=== PATIENT | female | born 2000 | race Caucasian/White ===

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

== ENCOUNTER → 2020-01-13 14:55 | Outpatient (CLI) | payer OTHER, SELFPAY | PROVIDERS: Visit Provider Physician Assistant | DX: N76.0 Acute vaginitis (principal) | CPT/HCPCS: 87210 ==

== ENCOUNTER 2020-06-16 13:32 | Emergency (ER) | payer OTHER, SELFPAY ==
[2020-06-16 14:05] VITALS: BP 85/68; PULSE 62; RESP 16; O2SAT 98; BMI 29.0
[2020-06-16 14:06] VITALS: BP 103/70; BP 123/69; PULSE 65; RESP 17; TEMP 36.7; O2SAT 97; BMI 29.0
--- NOTE | 2020-06-16 14:07 | ECG_ITS ---
APPROVED REPORT Exam: Resting ECG HR:60 bpm ECG Measurements Heart Rate 60 AXES MT 150 P 36 QRSd 80 QRS 71 QT 426 T 19 QTc 426 <Conclusion> Normal sinus rhythm Normal ECG Electronically signed by : Juan Capps, 06/16/2020 20:16:22
--- NOTE | 2020-06-16 14:07 | XR_ITS ---
PROCEDURE: XR CHEST 2V CLINICAL HISTORY: syncope COMPARISON: CXR CHEST(2 VIEWS-NOT PORTABLE) from 07/28/2015 FINDINGS: The cardiomediastinal silhouette and pulmonary vascularity are within normal limits. The lungs are clear without infiltrates, suspicious nodules, or pleural effusions. No acute bony abnormalities. IMPRESSION: No acute findings. Dictated by: Noel Arteaga MD 06/16/2020 16:12 Electronically signed by Noel Arteaga MD in [facility] 06/16/2020 16:12
--- NOTE | 2020-06-16 14:08 | CT_ITS ---
PROCEDURE: CT HEAD/BRAIN WO CON CLINICAL INDICATION: syncope COMPARISON: No exams were available for comparison TECHNIQUE: Axial images obtained. All CT scans at the facility use one or more dose reduction, viz: automated exposure control, ma/kV adjustment per patient size (including targeted exams where dose is matched to indication, i.e. head), or iterative reconstruction technique. FINDINGS: No midline shift, mass effect, intracranial hemorrhage, hydrocephalus, or extra-axial fluid collection is evident. There is some asymmetry in the anterior horns of the lateral ventricles the right being smaller than the left both being somewhat small/slit like. The calvarium has an unremarkable appearance. No mastoid effusion. No sinus air-fluid level. IMPRESSION: 1. No acute intracranial finding. 2. Slit-like anterior horn of the lateral ventricles right-sided smaller than left. This is nonspecific but could be seen with pseudotumor cerebri. Clinical correlation required. Nonemergent MRI may provide further evaluation Dictated by: Noel Arteaga MD 06/16/2020 14:57 Electronically signed by Noel Arteaga MD in [facility] 06/16/2020 14:57
[2020-06-16 14:17] LABS: Microscopic, Urine URINE MICROSCOPIC (MICROSCOPIC)
[2020-06-16 14:21] LABS: Appearance,Urine CLEAR (Clear); Bilirubin,Urine Negative (Negative); Blood, Urine 3+ (Negative); Color,Urine YELLOW (Yellow); Glucose,Urine (UA) Negative (Negative); Ketones,Urine Negative (Negative); Leukocyte Esterase,Urine Negative (Negative); Nitrate,Urine Negative (Negative); Protein,Urine TRACE (Negative); Urobilinogen,Urine 0.2 EU/dl (0.2)
[2020-06-16 14:24] LABS: Urine Pregnancy, HCG Qual. Negative (Negative)
[2020-06-16 14:31] LABS: Bacteria,Urine 1+ /lpf; Mucus,Urine 2+ /lpf; RBC,Urine 20-50 #/hpf (0-3)
[2020-06-16 14:34] LABS: Amphetamine/Metha Screen,Urine Negative ng/ml (<1000)
[2020-06-16 14:35] LABS: Barbiturates Screen,Urine Negative ng/ml (<200); Benzodiazepines Screen,Urine Negative ng/ml (<200)
[2020-06-16 14:36] LABS: Cannabinoid Screen,Urine Negative ng/ml (<50); Cocaine Screen,Urine Negative ng/ml (<300)
[2020-06-16 14:37] LABS: Methadone Screen,Urine Negative ng/ml (<300)
[2020-06-16 14:38] LABS: Opiate Screen,Urine Negative ng/ml (<300); Phencyclidine Screen,Urine Negative ng/ml (<25)
[2020-06-16 14:45] LABS: Basophils # 0.1 K/mm3 (0-0.2); Basophils % 0.7 % (0.1-2.0); Eosinophils # 0.4 K/mm3 (0.0-0.4); Eosinophils % 4.2 % (0.1-12.0); Hemoglobin 13.8 g/dL (12.2-16.2); Lymphocytes # 2.3 K/mm3 (0.7-4.5); Lymphocytes % 24.8 % (10-50); Mean Corpuscular HGB Conc 34.6 g/dL (31.8-35.4); Mean Corpuscular Hemoglobin 29.4 pg (27.0-31.2); Mean Platelet Volume 7.1 fl (7.4-10.4); Monocytes # 0.5 K/mm3 (0.1-1.0); Monocytes % 5.2 % (1.7-9.3); Neutrophils # 5.9 K/mm3 (1.8-7.8); Neutrophils % 65.1 % (37.0-80.0); Platelet Count 334 K/mm3 (142-424); Red Cell Distribution Width 13.7 % (11.5-17.5)
[2020-06-16 14:51] LABS: Alanine Aminotransferase 26 U/L (12-78); Albumin Level 4.7 g/dl (3.5-5.0); Albumin/Globulin Ratio 1.3 (1.1-1.8); Alkaline Phosphatase 111 U/L (38-126); Anion Gap 12.1 mEq/L (5-15); Aspartate Amino Transferase 39 U/L (14-36); Bilirubin,Total 0.7 mg/dl (0.2-1.3); Blood Urea Nitrogen 13 mg/dl (7-17); Calcium 9.5 mg/dl (8.4-10.2); Carbon Dioxide 28 mmol/L (22.0-30.0); Chloride 106 mmol/L (98-107); Creatinine Clearance Estimated 220 mL/min (50-200); Estimated Glomerular Filt Rate 126 ml/min (>60); GFR (African American) 153 ML/MIN (>60); Globulin 3.5 g/dL (1.3-3.2); Glucose 95 mg/dl (74-100); Potassium 4.1 mmoL/L (3.5-5.1); Sodium 142 mmol/L (136-145); Total Protein,Serum 8.2 g/dl (6.3-8.2)
[2020-06-16 15:02] LABS: Troponin I < 0.01 ng/ml (0.00-0.034)
[2020-06-16 15:03] VITALS: BP 118/60; BP 118/61; BP 123/69; PULSE 60; PULSE 65; PULSE 92
[2020-06-16 16:10] VITALS: BP 116/72; PULSE 94; RESP 20; O2SAT 100
--- NOTE | 2020-06-16 16:41 | HMH.EDSYNC ---
ED Disposition Clinical Impression: Vasovagal syncope Disposition: Home, Self-Care Condition on Discharge: Good Instructions: DI for Syncope in Adults (Fainting) Referrals: Gabby Olivas PA [Primary Care Provider] - - Critical Care Critical Care Time: No Attestation: On 06/16/20, the high probability of a clinically significant, sudden or life threatening deterioration of the following system(s) required my full and direct attention, intervention and personal management. The time I documented below is in addition to time spent performing reported procedures but includes the following listed in this critical care notation. Medical Decision Making - Medical Records Medical records reviewed: Yes: I reviewed the patient's medical records. - Almas Inquiry Pt receiving controlled substance: No Vital Signs: 06/16/20 14:05 06/16/20 14:06 06/16/20 15:03 Temperature 98.1 F Temperature Source Oral Pulse Rate [Left Brachial] 62 Pulse Rate [Orthostatic Lying] 65 Pulse Rate [Orthostatic Sitting] 92 H Pulse Rate [Orthostatic Standing] 60 Pulse Rate [Right] 65 Respiratory Rate 16 17 Blood Pressure [Left Arm] 85/68 L Blood Pressure [Orthostatic Lying Right Arm] 123/69 Blood Pressure [Orthostatic Sitting Right Arm] 118/60 Blood Pressure [Orthostatic Standing] 118/61 Blood Pressure [Right Arm] 103/70 L Blood Pressure Mean [Left Arm] 73 Blood Pressure Mean [Right Arm] 81 Blood Pressure Source [Left Arm] Automatic Cuff Blood Pressure Source [Right Arm] Automatic Cuff Blood Pressure Position [Left Arm] Sitting Blood Pressure Position [Right Arm] Sitting 02 Sat by Pulse Oximetry 98 97 Oxygen Delivery Method Room Air 06/16/20 16:10 Temperature Temperature Source Pulse Rate [Left Brachial] 94 H Pulse Rate [Orthostatic Lying] Pulse Rate [Orthostatic Sitting] Pulse Rate [Orthostatic Standing] Pulse Rate [Right] Respiratory Rate 20 Blood Pressure [Left Arm] 116/72 Blood Pressure [Orthostatic Lying Right Arm] Blood Pressure [Orthostatic Sitting Right Arm] Blood Pressure [Orthostatic Standing] Blood Pressure [Right Arm] Blood Pressure Mean [Left Arm] 86 Blood Pressure Mean [Right Arm] Blood Pressure Source [Left Arm] Automatic Cuff Blood Pressure Source [Right Arm] Blood Pressure Position [Left Arm] Sitting Blood Pressure Position [Right Arm] 02 Sat by Pulse Oximetry 100 Oxygen Delivery Method Room Air - Lab Data Lab results reviewed: Yes: I reviewed the patient's lab results. Lab Results 06/16/20 12:10: Urine Color Yellow, Urine Appearance Clear, Urine pH 7.0, Ur Specific [place] 1.020, Urine Protein Trace, Urine Glucose (UA) Negative, Urine Ketones Negative, Urine Blood 3+, Urine Nitrate Negative, Urine Bilirubin Negative, Urine Urobilinogen 0.2, Ur Leukocyte Esterase Negative, Urine RBC 20-50, Urine WBC 3-5, Ur Squamous Epith Cells 3-5, Urine Bacteria 1+, Urine Mucus 2+ 06/16/20 12:10: Urine HCG, Qual Negative 06/16/20 12:10: Urine Opiates Screen Negative, Urine Methadone Screen Negative, Ur Barbituates Screen Negative, Ur Phencyclidine Scrn Negative, Ur Amphetamines Screen Negative, U Benzodiazepines Scrn Negative, Urine Cocaine Screen Negative, U Marijuana (THC) Screen Negative 06/16/20 14:35: WBC 9.0, RBC 4.70, Hgb 13.8, Hct 40.0, MCV 85.0, MCH 29.4, MCHC 34.6, RDW 13.7, Plt Count 334, MPV 7.1 L, Neut % (Auto) 65.1, Lymph % (Auto) 24.8, [place] % (Auto) 5.2, Eos % (Auto) 4.2, Baso % (Auto) 0.7, Neut # (Auto) 5.9, Lymph # (Auto) 2.3, [place] # (Auto) 0.5, Eos # (Auto) 0.4, Baso # (Auto) 0.1 06/16/20 14:35: Sodium 142, Potassium 4.1, Chloride 106, Carbon Dioxide 28, Anion Gap 12.1, BUN 13, Creatinine 0.60, Estimated Creat Clear 220, Estimated GFR 126, Est GFR ( Amer) 153, Glucose 95, Calcium 9.5, Total Bilirubin 0.7, AST 39 H, ALT 26, Alkaline Phosphatase 111, Troponin I < 0.01, Total Protein 8.2, Albumin 4.7, Globulin 3.5 H, Albumin/Globulin Ratio 1.3 Resu
[2020-06-16 16:49] VITALS: BP 108/87; PULSE 87; RESP 17; TEMP 36.6; O2SAT 100
== END 2020-06-16 16:50 | disposition home or self-care (01) ==
LOC: UTC 14:05 → ER 14:06
PROVIDERS: Emergency Provider Family Medicine; PCP Physician Assistant
DX: R55 Syncope and collapse (principal)
CPT/HCPCS: 70450; 71046; 80053; 80305; 81001; 81025; 84484; 85025; 93005; 96365; 99284

== ENCOUNTER → 2021-09-24 11:38 | Outpatient (CLI) | payer OTHER, SELFPAY ==
[2021-09-24 13:24] LABS: HCG,Quantitative 74 mIU/ml (0-5.42)
== END ==
PROVIDERS: Visit Provider Obstetrics & Gynecology
DX: Z32.01 Encounter for pregnancy test, result positive (principal)
CPT/HCPCS: 36415; 84702

== ENCOUNTER → 2021-09-26 11:54 | Outpatient (CLI) | payer OTHER, SELFPAY ==
[2021-09-26 13:06] LABS: HCG,Quantitative 216 mIU/ml (0-5.42)
== END ==
PROVIDERS: Visit Provider Obstetrics & Gynecology
DX: Z32.00 Encounter for pregnancy test, result unknown (principal)
CPT/HCPCS: 36415; 84702

== ENCOUNTER → 2021-10-03 17:15 | Outpatient (CLI) | payer OTHER, SELFPAY ==
[2021-10-03 22:02] LABS: HCG,Quantitative 7987 mIU/ml (0-5.42)
== END ==
PROVIDERS: Visit Provider Obstetrics & Gynecology
DX: Z34.90 Encounter for supervision of normal pregnancy, unspecified, unspecified trimester (principal)
CPT/HCPCS: 36415; 84702

== ENCOUNTER → 2021-10-17 09:27 | Outpatient (CLI) | payer OTHER, SELFPAY ==
[2021-10-17 11:07] LABS: Coronavirus 19, PCR Not Detected (NotDetected); Influenza A, PCR Not Detected (NotDetected); Influenza B, PCR Not Detected (NotDetected)
== END ==
PROVIDERS: PCP Physician Assistant; Visit Provider Nurse Practitioner
DX: Z20.822 Contact with and (suspected) exposure to COVID-19 (principal)
CPT/HCPCS: C9803; U0003; U0005

== ENCOUNTER → 2021-10-17 14:09 | Outpatient (CLI) | payer OTHER, SELFPAY ==
--- NOTE | 2021-10-17 14:09 | US_ITS ---
PROCEDURE: US OB <= 14 WEEKS FETUS CLINICAL INDICATION: Dates COMPARISON: No exams were available for comparison FINDINGS: An intrauterine gestational sac is present with a pole with a crown-rump length of 0.9cm correlating to gestational age of 7weeks. heart tones are present with an FHR of 139bpm. Yolk sac is noted. 15 mm left ovarian cyst. No cul-de-sac fluid IMPRESSION: Live IUP at 7 weeks 0 days Estimated due date by Ultrasound is 06/05/2022 Dictated by: Noel Arteaga MD 10/18/2021 08:19 Noel Arteaga MD in [facility] 10/18/2021 08:19
== END ==
PROVIDERS: PCP Physician Assistant; Visit Provider Obstetrics & Gynecology
DX: Z34.90 Encounter for supervision of normal pregnancy, unspecified, unspecified trimester (principal)
CPT/HCPCS: 76801

== ENCOUNTER → 2021-10-19 11:04 | Outpatient (CLI) | payer OTHER, SELFPAY ==
[2021-10-19 11:47] LABS: Basophils # 0.1 K/mm3 (0-0.2); Basophils % 0.8 % (0.1-2.0); Eosinophils # 0.3 K/mm3 (0.0-0.4); Eosinophils % 2.3 % (0.1-12.0); Hematocrit 40.5 % (37.0-47.0); Lymphocytes # 2.1 K/mm3 (0.7-4.5); Lymphocytes % 17.5 % (10-50); Mean Corpuscular HGB Conc 34.5 g/dL (31.8-35.4); Mean Corpuscular Hemoglobin 30.3 pg (27.0-31.2); Mean Corpuscular Volume 87.8 fl (81-99); Mean Platelet Volume 7.7 fl (7.4-10.4); Monocytes # 0.5 K/mm3 (0.1-1.0); Monocytes % 4.4 % (1.7-9.3); Platelet Count 424 K/mm3 (142-424); Red Blood Count 4.61 M/mm3 (4.20-5.40); Red Cell Distribution Width 13.7 % (11.5-17.5)
[2021-10-20 10:27] LABS: Rubella Antibodies, IgG 2.27 index (Immune >0.99)
[2021-10-20 11:30] LABS: HIV Screen 4th Generation wRfx Non Reactive (Non Reactive); Hepatitis B Surface Antigen Negative (Negative); Hepatitis C Antibody <0.1 s/co ratio (0.0-0.9); Rapid Plasma Reagin Ab Titer Non Reactive (NonRea<1:1)
== END ==
PROVIDERS: Visit Provider Obstetrics & Gynecology
DX: Z34.90 Encounter for supervision of normal pregnancy, unspecified, unspecified trimester (principal)
CPT/HCPCS: 36415; 85025; 86592; 86703; 86762; 86850; 87340; 87380; G0432

== ENCOUNTER 2021-12-03 14:58 | Outpatient (CLI) | payer OTHER, SELFPAY ==
[2021-12-03 15:15] VITALS: BP 110/58; PULSE 98; RESP 18; O2SAT 97
[2021-12-03 16:20] VITALS: BP 121/71; PULSE 70; RESP 18
== END 2021-12-03 16:20 | disposition home or self-care (01) ==
LOC: INF 14:59
PROVIDERS: PCP Physician Assistant; Visit Provider Obstetrics & Gynecology
DX: O21.0 Mild hyperemesis gravidarum (principal)
CPT/HCPCS: 96360; 96375; J2405

== ENCOUNTER → 2022-01-11 13:27 | Outpatient (CLI) | payer OTHER, SELFPAY ==
--- NOTE | 2022-01-11 13:30 | US_ITS ---
FINAL REPORT CLINICAL HISTORY: anatomy scan, OB complete FINDINGS: There is a single live intrauterine gestation. Presentation is cephalic. Placenta is posterior and fundal. movement is noted. Cardiac activity is confirmed at 146 beats per minute. Three-vessel cord with satisfactory umbilical cord insertion. Four-chamber heart is noted. brain and ventricles are unremarkable. Chest and diaphragm are unremarkable. ABDOMEN: Both kidneys are unremarkable. Stomach is unremarkable. SPINE: No anomalies identified. Both arms and legs noted. AMNIOTIC FLUID: Appropriate amount. MEASUREMENTS: ULTRASOUND AGE: 20 weeks 0 days. GESTATION AGE: 19 weeks 2 days. ESTIMATED WEIGHT: 317 g GROWTH PERCENTILE: 79% BPD: 4.7 cm consistent with 20 weeks 2 days. OFD: 5.9 cm consistent with 20 weeks 2 days. HC: 16.8 cm consistent with 19 weeks 3 days. AC: 14.6 cm consistent with 20 weeks 0 days. FL: 3.2 cm consistent with 20 weeks 0 days. CEREBELLUM: 2.0 cm consistent with 20 weeks 0 days. HUMERUS: 3.0 cm consistent with 20 weeks 0 Nuchal fold: 2.2 mm days. HC/AC: 1.15 CI: 79% FL/BPD: 68% FL/AC: 22% IMPRESSION: Single living IUP with an ultrasound age of 22 weeks 0 days. Reviewed, Interpreted and Dictated by Vitaliy Orona III, MD Transcribed by Tai Cerda Authenticated by Vitaliy Orona III, MD on 01/11/2022 02:57:16 PM [facility]
== END ==
PROVIDERS: PCP Physician Assistant; Visit Provider Obstetrics & Gynecology
DX: Z34.90 Encounter for supervision of normal pregnancy, unspecified, unspecified trimester (principal)
CPT/HCPCS: 76805

== ENCOUNTER 2022-02-04 16:10 | Emergency (ER) | payer OTHER, SELFPAY ==
--- NOTE | 2022-02-04 16:05 | ECG_ITS ---
APPROVED REPORT Exam: Resting ECG HR:85 bpm ECG Measurements Heart Rate 85 AXES NH 137 P 59 QRSd 82 QRS 57 QT 376 T 38 QTc 418 Conclusion SINUS RHYTHM NORMAL ECG UNCONFIRMED REPORT Electronically signed by : Juan Capps MD 02/04/2022 19:45:22
[2022-02-04 16:11] VITALS: BP 124/69; PULSE 89; RESP 16; TEMP 36.9; O2SAT 100; BMI 37.3
--- NOTE | 2022-02-04 16:17 | XR_ITS ---
PROCEDURE INFORMATION: Exam: XR Chest Exam date and time: 02/04/2022 4:17 PM Age: 22 years old Clinical indication: Pain; Chest pressure; Additional info: Chest pain TECHNIQUE: Imaging protocol: XR of the chest. Views: 2 views. COMPARISON: CR XR CHEST 2V 06/16/2020 2:39 PM FINDINGS: Lungs: Unremarkable. No consolidation. Pleural spaces: Unremarkable. No pleural effusion. No pneumothorax. Heart/Mediastinum: Unremarkable. No cardiomegaly. Bones/joints: Unremarkable. IMPRESSION: No acute findings.
[2022-02-04 16:53] VITALS: BP 117/63; PULSE 84; PULSE 86; RESP 16; RESP 18; O2SAT 99
[2022-02-04 17:01] VITALS: BP 120/61; PULSE 80; RESP 18; O2SAT 96
[2022-02-04 17:06] LABS: Basophils # 0.1 K/mm3 (0-0.2); Basophils % 0.7 % (0.1-2.0); Eosinophils # 0.2 K/mm3 (0.0-0.4); Eosinophils % 1.6 % (0.1-12.0); Hematocrit 40.1 % (37.0-47.0); Lymphocytes # 2.2 K/mm3 (0.7-4.5); Mean Corpuscular HGB Conc 32.4 g/dL (31.8-35.4); Mean Corpuscular Hemoglobin 29.8 pg (27.0-31.2); Mean Corpuscular Volume 92.1 fl (81-99); Mean Platelet Volume 7.4 fl (7.4-10.4); Monocytes # 0.5 K/mm3 (0.1-1.0); Monocytes % 3.7 % (1.7-9.3); Neutrophils # 11.5 K/mm3 (1.8-7.8); Neutrophils % 79.1 % (37.0-80.0); Platelet Count 419 K/mm3 (142-424); Red Blood Count 4.36 M/mm3 (4.20-5.40); Red Cell Distribution Width 14.6 % (11.5-17.5); White Blood Count 14.5 K/mm3 (4.8-10.8)
[2022-02-04 17:07] LABS: Chloride 105 mmol/L (98-107)
[2022-02-04 17:08] LABS: Potassium 3.9 mmoL/L (3.5-5.1); Sodium 132 mmol/L (136-145)
[2022-02-04 17:10] LABS: Blood Urea Nitrogen 12 mg/dl (7-17); Creatinine Clearance Estimated 317 mL/min (50-200); Estimated Glomerular Filt Rate 153 ml/min (>60); GFR (African American) 185 ML/MIN (>60)
[2022-02-04 17:11] LABS: Anion Gap 10.9 mEq/L (5-15); Calcium 8.7 mg/dl (8.4-10.2); Carbon Dioxide 20 mmol/L (22.0-30.0); Glucose 81 mg/dl (74-100)
[2022-02-04 17:30] VITALS: BP 102/68; PULSE 82; RESP 16; O2SAT 100
[2022-02-04 17:36] LABS: Troponin I < 0.01 ng/ml (0.00-0.034)
--- NOTE | 2022-02-04 17:52 | HMH.EDCP ---
ED Disposition Clinical Impression: Chest pain Disposition: Home, Self-Care Condition on Discharge: Good Instructions: DI for Atypical Chest Pain Additional Instructions: Please follow up with your primary care physician in 2-3 days for further management. Please discuss with your primary care team regarding potentially starting a PPI for your acid reflux. Please avoid eating large meals before bedtime. Please avoid spicy and fatty foods or anything else that may cause irritation. Please return if your symptoms were to occur. Referrals: Gabby Olivas PA [Primary Care Provider] - - Critical Care Critical Care Time: No Attestation: On 02/04/22, the high probability of a clinically significant, sudden or life threatening deterioration of the following system(s) required my full and direct attention, intervention and personal management. The time I documented below is in addition to time spent performing reported procedures but includes the following listed in this critical care notation. Medical Decision Making - Medical Records Medical records reviewed: Yes: I reviewed the patient's medical records. - Almas Inquiry Pt receiving controlled substance: No Vital Signs: 02/04/22 16:11 02/04/22 16:53 02/04/22 17:01 Temperature 98.4 F Temperature Source Oral Pulse Rate 84 80 Pulse Rate [Left Radial] 89 Respiratory Rate 16 18 18 Blood Pressure 117/63 120/61 Blood Pressure [Right Arm] 124/69 Blood Pressure Mean 78 74 Blood Pressure Mean [Right Arm] 87 Blood Pressure Source Automatic Cuff Blood Pressure Source [Right Arm] Automatic Cuff Blood Pressure Position Sitting Blood Pressure Position [Right Arm] Sitting 02 Sat by Pulse Oximetry 100 99 96 Oxygen Delivery Method Room Air Room Air 02/04/22 17:30 02/04/22 18:01 02/04/22 18:46 Temperature 98 F Temperature Source Oral Pulse Rate 82 81 71 Pulse Rate [Left Radial] Respiratory Rate 16 20 18 Blood Pressure 102/68 L 122/53 L 123/74 Blood Pressure [Right Arm] Blood Pressure Mean 79 80 Blood Pressure Mean [Right Arm] Blood Pressure Source Blood Pressure Source [Right Arm] Blood Pressure Position Sitting Blood Pressure Position [Right Arm] 02 Sat by Pulse Oximetry 100 96 Oxygen Delivery Method Room Air - Lab Data Lab results reviewed: Yes: I reviewed the patient's lab results. Lab Results 02/04/22 16:55: WBC 14.5 H, RBC 4.36, Hgb 13.0, Hct 40.1, MCV 92.1, MCH 29.8, MCHC 32.4, RDW 14.6, Plt Count 419, MPV 7.4, Neut % (Auto) 79.1, Lymph % (Auto) 15.0, [place] % (Auto) 3.7, Eos % (Auto) 1.6, Baso % (Auto) 0.7, Neut # (Auto) 11.5 H, Lymph # (Auto) 2.2, [place] # (Auto) 0.5, Eos # (Auto) 0.2, Baso # (Auto) 0.1 02/04/22 16:55: Sodium 132 L, Potassium 3.9, Chloride 105, Carbon Dioxide 20 L, Anion Gap 10.9, BUN 12, Creatinine 0.50 L, Estimated Creat Clear 317 H, Estimated GFR 153, Est GFR ( Amer) 185, Glucose 81, Calcium 8.7, Troponin I < 0.01 02/04/22 16:55: D-Dimer 1.00 H Result diagrams: 02/04/22 16:55 02/04/22 16:55 Medical Decision Narrative: Miss Ron is a 22 yo female currently w/ no significant PMH who presents to the ED for chest pain. Patient is afebrile and hemodynamically stable on arrival. Physical exam benign. Lungs sounds clear bilaterally. cardiac assessment no murmurs rubs or gallops. Patient is well appearing. Differentials to consider but not limited to include: arrythmia, cardiac mediated, pneumonia low suspicion given no infectious symptoms, MSK. Bedside ECG shows no acute signs of ischemia. Bedside CXR shows normal cardiopulmonary silhoutee. Basic labs, Trop, Dimer are non actionable. Dimer per years criteria no further investigation. Christy is observed in the ED and is currently asymptomatic. Patient is instructed to fu w/ her PCP in 2-3 days and to return if symptoms were to reoccur. Chest Pain HPI - General Chief Complaint: Chest Pain Stated Complaint: chest pain Ti
[2022-02-04 18:01] VITALS: BP 122/53; PULSE 81; RESP 20; O2SAT 96
[2022-02-04 18:46] VITALS: BP 123/74; PULSE 71; RESP 18; TEMP 36.6; O2SAT 98
== END 2022-02-04 18:47 | disposition home or self-care (01) ==
PROVIDERS: Emergency Provider Student in an Organized Health Care Education/Training Program; PCP Physician Assistant
DX: R07.89 Other chest pain (principal); E55.9 Vitamin D deficiency, unspecified; F32.A Depression, unspecified; F41.9 Anxiety disorder, unspecified; Z34.90 Encounter for supervision of normal pregnancy, unspecified, unspecified trimester; Z79.899 Other long term (current) drug therapy; Z88.6 Allergy status to analgesic agent
CPT/HCPCS: 71046; 80048; 84484; 85025; 85378; 93005; 96374; 99283

== ENCOUNTER → 2022-03-12 09:38 | Outpatient (CLI) | payer OTHER, SELFPAY ==
[2022-03-12 10:23] LABS: Basophils # 0.2 K/mm3 (0-0.2); Basophils % 1.8 % (0.1-2.0); Eosinophils # 0.3 K/mm3 (0.0-0.4); Eosinophils % 2.2 % (0.1-12.0); Hematocrit 36.6 % (37.0-47.0); Hemoglobin 12.5 g/dL (12.2-16.2); Lymphocytes % 17.7 % (10-50); Mean Corpuscular HGB Conc 34.1 g/dL (31.8-35.4); Mean Corpuscular Hemoglobin 30.2 pg (27.0-31.2); Mean Corpuscular Volume 88.6 fl (81-99); Mean Platelet Volume 7.2 fl (7.4-10.4); Monocytes # 0.6 K/mm3 (0.1-1.0); Monocytes % 5.1 % (1.7-9.3); Neutrophils # 8.4 K/mm3 (1.8-7.8); Neutrophils % 73.3 % (37.0-80.0); Platelet Count 404 K/mm3 (142-424); Red Blood Count 4.13 M/mm3 (4.20-5.40); Red Cell Distribution Width 13.9 % (11.5-17.5); White Blood Count 11.4 K/mm3 (4.8-10.8)
[2022-03-12 10:34] LABS: Glucose,Fasting 87 mg/dl (74-100)
[2022-03-12 16:12] LABS: Glucose 1 Hour 99 mg/dL (74-100)
== END ==
LOC: RAD 09:39 → LAB 09:39
PROVIDERS: PCP Physician Assistant; Visit Provider Obstetrics & Gynecology
DX: Z34.90 Encounter for supervision of normal pregnancy, unspecified, unspecified trimester (principal)
CPT/HCPCS: 36415; 82951; 85025

== ENCOUNTER 2022-03-17 00:13 | Outpatient (CLI) | payer OTHER, SELFPAY ==
[2022-03-17 00:23] VITALS: BP 114/73; PULSE 95; RESP 18; TEMP 36.7; O2SAT 95; BMI 38.7; BMI 39.7
[2022-03-17 00:38] LABS: Microscopic, Urine URINE MICROSCOPIC (MICROSCOPIC)
[2022-03-17 00:47] LABS: Appearance,Urine SL CLOUDY (Clear); Bilirubin,Urine Negative (Negative); Blood, Urine Negative (Negative); Color,Urine YELLOW (Yellow); Glucose,Urine (UA) Negative (Negative); Ketones,Urine Negative (Negative); Leukocyte Esterase,Urine Negative (Negative); Nitrate,Urine Negative (Negative); Protein,Urine Negative (Negative); Specific Gravity, Urine >= 1.030 (1.005-1.030); Urobilinogen,Urine 0.2 EU/dl (0.2)
[2022-03-17 00:51] LABS: Mucus,Urine Trace /lpf; Squamous Epithelial Cell,Urine 20-50 #/hpf (0-5)
[2022-03-17 01:02] LABS: Amphetamine/Metha Screen,Urine Negative ng/ml (<1000)
[2022-03-17 01:03] LABS: Barbiturates Screen,Urine Negative ng/ml (<200); Benzodiazepines Screen,Urine Negative ng/ml (<200)
[2022-03-17 01:04] LABS: Cannabinoid Screen,Urine Negative ng/ml (<50)
[2022-03-17 01:05] LABS: Cocaine Screen,Urine Negative ng/ml (<300); Methadone Screen,Urine Negative ng/ml (<300)
[2022-03-17 01:06] LABS: Opiate Screen,Urine Negative ng/ml (<300); Phencyclidine Screen,Urine Negative ng/ml (<25)
== END 2022-03-17 01:55 | disposition home or self-care (01) ==
LOC: OBOUT 00:14 → OB 00:15
PROVIDERS: PCP Physician Assistant; Visit Provider Nurse Practitioner Obstetrics & Gynecology
DX: Z34.90 Encounter for supervision of normal pregnancy, unspecified, unspecified trimester (principal)
CPT/HCPCS: 59025; 80305; 81001; 87086; 96360

== ENCOUNTER → 2022-04-22 14:03 | Outpatient (CLI) | payer OTHER, SELFPAY ==
--- NOTE | 2022-04-22 14:06 | US_ITS ---
FINAL REPORT CLINICAL HISTORY: LGA FINDINGS: There is a single live intrauterine gestation. Presentation is vertex. Placenta is posterior and fundal. movement is noted. heart rate is 153 beats per minute AMNIOTIC FLUID: 12.3 cm which is within normal limits. MEASUREMENTS: ULTRASOUND AGE: 35 weeks 3 days. GESTATION AGE: 35 weeks 5 days. ESTIMATED WEIGHT: 2583 g GROWTH PERCENTILE: 82% BPD: 8.89 cm consistent with 36 weeks 0 days. HC: 31.59 cm consistent with 35 weeks 4 days. AC: 31.05 cm consistent with 35 weeks 0 days. FL: 6.75 cm consistent with 34 weeks 5 days. HC/AC: 1.02 CI: 80% FL/BPD: 76% FL/AC: 22% IMPRESSION: Single living IUP with an ultrasound age of 35 weeks 3 days. Normal NATHANAEL. Posterior/fundal placenta. Reviewed, Interpreted and Dictated by Lakeshia Ivey MD Transcribed by Isi Shell Authenticated by Lakeshia Ivey MD on 04/22/2022 05:02:15 PM [facility]
== END ==
PROVIDERS: PCP Physician Assistant; Visit Provider Obstetrics & Gynecology
DX: Z34.90 Encounter for supervision of normal pregnancy, unspecified, unspecified trimester (principal)
CPT/HCPCS: 76816

== ENCOUNTER → 2022-05-06 16:49 | Outpatient (CLI) | payer OTHER, SELFPAY | PROVIDERS: Visit Provider Obstetrics & Gynecology | DX: Z34.90 Encounter for supervision of normal pregnancy, unspecified, unspecified trimester (principal) | CPT/HCPCS: 86403 ==

== ENCOUNTER 2022-05-12 04:44 | Outpatient (CLI) | payer OTHER, SELFPAY ==
[2022-05-12 04:54] VITALS: BMI 42.2
[2022-05-12 05:26] VITALS: BP 122/77; PULSE 82; RESP 18; TEMP 36.7; O2SAT 98; BMI 42.2
[2022-05-12 05:49] LABS: Microscopic, Urine URINE MICROSCOPIC (MICROSCOPIC)
[2022-05-12 05:51] LABS: Appearance,Urine SL CLOUDY (Clear); Bilirubin,Urine Negative (Negative); Blood, Urine Negative (Negative); Color,Urine YELLOW (Yellow); Glucose,Urine (UA) Negative (Negative); Ketones,Urine Negative (Negative); Leukocyte Esterase,Urine 1+ (Negative); Nitrate,Urine Negative (Negative); Protein,Urine TRACE (Negative)
[2022-05-12 06:01] LABS: Barbiturates Screen,Urine Negative ng/ml (<200)
[2022-05-12 06:02] LABS: Benzodiazepines Screen,Urine Negative ng/ml (<200)
[2022-05-12 06:03] LABS: Amphetamine/Metha Screen,Urine Negative ng/ml (<1000); Methadone Screen,Urine Negative ng/ml (<300)
[2022-05-12 06:04] LABS: Cannabinoid Screen,Urine Negative ng/ml (<50)
[2022-05-12 06:05] LABS: Cocaine Screen,Urine Negative ng/ml (<300); Opiate Screen,Urine Negative ng/ml (<300)
[2022-05-12 06:06] LABS: Phencyclidine Screen,Urine Negative ng/ml (<25)
[2022-05-12 06:36] LABS: Bacteria,Urine 2+ /lpf; RBC,Urine Occasional #/hpf (0-3); WBC,Urine 20-50 #/hpf (0-3)
[2022-05-12 06:37] LABS: Squamous Epithelial Cell,Urine 20-50 #/hpf (0-5)
== END 2022-05-12 06:14 | disposition home or self-care (01) ==
LOC: OBOUT 04:46 → OB 04:47
PROVIDERS: PCP Physician Assistant; Referring Provider Obstetrics & Gynecology; Visit Provider Obstetrics & Gynecology
DX: O60.03 Preterm labor without delivery, third trimester (principal); Z3A.36 36 weeks gestation of pregnancy
CPT/HCPCS: 59025; 80305; 81001; 87086; 96365; G0463

== ENCOUNTER 2022-05-21 17:41 | Inpatient (IN) | payer OTHER, SELFPAY ==
[2022-05-21 17:56] VITALS: BMI 42.5
[2022-05-21 18:26] LABS: Coronavirus 19, PCR Not Detected (NotDetected); Influenza A, PCR Not Detected (NotDetected); Influenza B, PCR Not Detected (NotDetected); Microscopic, Urine URINE MICROSCOPIC (MICROSCOPIC)
[2022-05-21 18:30] LABS: Appearance,Urine CLOUDY (Clear); Bilirubin,Urine Negative (Negative); Blood, Urine TRACE-I (Negative); Color,Urine DK YELLOW (Yellow); Glucose,Urine (UA) Negative (Negative); Ketones,Urine Negative (Negative); Leukocyte Esterase,Urine 1+ (Negative); Nitrate,Urine Negative (Negative); PH,Urine 6.5 (5.0-8.5); Protein,Urine 2+ (Negative); Specific Gravity, Urine 1.025 (1.005-1.030); Urobilinogen,Urine 0.2 EU/dl (0.2)
[2022-05-21 18:31] LABS: Basophils # 0.3 K/mm3 (0-0.2); Eosinophils # 0.2 K/mm3 (0.0-0.4); Eosinophils % 1.1 % (0.1-12.0); Hematocrit 35.9 % (37.0-47.0); Hemoglobin 12.2 g/dL (12.2-16.2); Lymphocytes % 14.4 % (10-50); Mean Corpuscular Hemoglobin 28.2 pg (27.0-31.2); Mean Corpuscular Volume 82.9 fl (81-99); Mean Platelet Volume 7.6 fl (7.4-10.4); Monocytes # 0.7 K/mm3 (0.1-1.0); Monocytes % 4.9 % (1.7-9.3); Neutrophils # 10.7 K/mm3 (1.8-7.8); Neutrophils % 77.6 % (37.0-80.0); Platelet Count 427 K/mm3 (142-424); Red Blood Count 4.32 M/mm3 (4.20-5.40); White Blood Count 13.8 K/mm3 (4.8-10.8)
[2022-05-21 18:34] VITALS: BP 131/92; PULSE 80; RESP 18; TEMP 36.6; O2SAT 98; BMI 42.5
[2022-05-21 18:40] LABS: Barbiturates Screen,Urine Negative ng/ml (<200)
[2022-05-21 18:41] LABS: Amphetamine/Metha Screen,Urine Negative ng/ml (<1000); Benzodiazepines Screen,Urine Negative ng/ml (<200)
[2022-05-21 18:42] LABS: Cocaine Screen,Urine Negative ng/ml (<300)
[2022-05-21 18:43] LABS: Cannabinoid Screen,Urine Negative ng/ml (<50); Methadone Screen,Urine Negative ng/ml (<300)
[2022-05-21 18:44] LABS: Opiate Screen,Urine Negative ng/ml (<300)
[2022-05-21 18:45] LABS: Phencyclidine Screen,Urine Negative ng/ml (<25)
[2022-05-21 19:18] LABS: Bacteria,Urine 3+ /lpf; RBC,Urine Occasional #/hpf (0-3); WBC,Urine 20-50 #/hpf (0-3)
--- NOTE | 2022-05-21 20:05 | HMH.ANESCL ---
[facility] Anesthesia Checklist - Patient Identification Patient Identification: Verbal (Name & ) - Structural Data Admitted From: Inpatient Planned Operative Procedure/s: CEDRICK Consent for Planned Operative Procedure(s) Verified: Yes Verified Documents: Surgical Consent - Chart Verification Results Verified: CBC - Airway Assessment C-Spine Mobility Assessed: Yes TMJ Mobility Assessed: Yes Dentition: Good Dentition - Neurological Assessment Level of Consciousness: Awake, Alert, Appropriate - Anesthesia Plan Anesthesia Risk discussed: Yes ASA Class: II Anesthesia Type: Epidural [facility] History I have reviewed the patient's past medical history: Yes Medical History: Reports:: Anxiety, Depression *Have you ever received a pneumonia vaccine?: No *Have you received a flu vaccine this season?: No Anesthesia experience/problems:: none Other Surgeries: Yes: No Previous Surgery. No: Amputation: No Fractures: No - *Social History Smoking Status: Never smoker Alcohol Intake: never Substance Use Type: denies use *Occupational Status:: employed *Travel in the last 8 weeks: None - Psychiatric History Pschychiatric History:: Reports:: Anxiety, Depression Family Hx:: Cancer, Diabetes, Heart Attack, Hypertension, Substance abuse, Alcoholism, Mental illness Para: 1
--- NOTE | 2022-05-21 20:20 | HMH.OBAPHP ---
OB - H&P: HPI Antepartum - History of Present Illness Chief complaint: Active labor History of present illness: She is a 22-year-old 2 para 1 at 37 and 6 weeks gestational age. She came in in active labor. She was found to be 5 cm on arrival. She was having regular contractions. - History of Present Criteria for establishing EDC:: LMP confirmed by 1st trimester US care: good care Ultrasounds: normal 1st trimester US, normal mid trimester US Obstetrical complications: none Medical complications: none - Labs Blood type: O (+) positive Rubella: immune RPR/VDRL: nonreactive GBS status: negative HBsAG: negative [facility] History I have reviewed the patient's past medical history: Yes Medical History: Reports:: Anxiety, Depression *Have you ever received a pneumonia vaccine?: No *Have you received a flu vaccine this season?: No Anesthesia experience/problems:: none Other Surgeries: Yes: No Previous Surgery. No: Amputation: No Fractures: No - *Social History Smoking Status: Never smoker Alcohol Intake: never Substance Use Type: denies use *Occupational Status:: employed *Travel in the last 8 weeks: None - Psychiatric History Pschychiatric History:: Reports:: Anxiety, Depression Family Hx:: Cancer, Diabetes, Heart Attack, Hypertension, Substance abuse, Alcoholism, Mental illness Para: 1 Review of Systems - Review of Systems Review of systems:: pertinent systems reviewed and negative unless documented below Meds Allergies Allergy/AdvReac Type Severity Reaction Status Date / Time hydrocodone Allergy Severe SEIZURES Verified 05/13/22 13:55 ON HALF OF MY BODY OB - H&P: Exam - Physical Exam Vital signs: Temp Pulse Resp BP Pulse Ox 97.8 F 80 18 131/92 H 98 05/21/22 18:34 05/21/22 18:34 05/21/22 18:34 05/21/22 18:34 05/21/22 18:34 - Constitutional no acute distress - Routine HEENT Exam Head: Present: normocephalic Eye: Present: EOMI, PERRL ENT: Present: mucous membranes moist - Routine Neck Exam Present: supple, full ROM - Routine Respiratory Exam Absent: accessory muscle use (good air entry bilaterally), respiratory distress, wheezes, crackles - Routine Cardiovascular Exam Present: RRR. Absent: murmur - Routine Abdominal Exam Present: soft, normoactive bowel sounds. Absent: tenderness, distended, guarding - Routine Rectal Exam Patient deferred: visual exam, digital exam - Routine Exam Patient deferred: external exam, groin exam, perineal exam - Routine Extremities Exam Present: full ROM. Absent: cyanosis, edema - Routine Skin Exam Present: intact. Absent: cyanosis - Routine Neurological Exam Present: alert, oriented X3 - Routine Psychiatric Exam Present: normal affect OB - Results - Labs Labs: Short CBC 05/21/22 Range/Units 18:16 WBC 13.8 H (4.8-10.8) K/mm3 Hgb 12.2 (12.2-16.2) g/dL Hct 35.9 L (37.0-47.0) % Plt Count 427 H (142-424) K/mm3 Urine 05/21/22 Range/Units 18:00 Urine Color Dk yellow (Yellow) Urine Appearance Cloudy (Clear) Urine pH 6.5 (5.0-8.5) Ur Specific [place] 1.025 (1.005-1.030) Urine Protein 2+ (Negative) Urine Glucose (UA) Negative (Negative) OB - A/P Antepartum (1) Normal delivery at term Status: Acute - Additional Plan Planning to breastfeed?: Yes Plan: expectant management Additional Information:: She is admitted with active labor. She is 5 to 6 cm. I ruptured her membranes and there was clear fluid. She is had a previous 8 pound baby.
--- NOTE | 2022-05-21 20:23 | HMH.LABNOT ---
Labor Note - Subjective: Date: 05/21/22 Time: 20:23 regular contraction - Objective: NST:: Reactive Contractions:: every 2-3 minutes Cervical Dilation:: 5-6 Effacement:: 90% Station: -1 Membranes: artificially ruptured - Fetus: Monitoring?: Yes monitoring type:: External - Assessment: Labor progressing?: Yes Cephalopelvic disproportion?: No Patient Problems: All Active Problems (Last Updated 11/21/18 @ 14:40 by KIMBERLI Tesfaye) Chest pain (Acute) Normal delivery at term (Acute) Large for gestational age fetus (Acute) BMI greater than 40 (Acute) Back pain during (Acute) Hyperemesis gravidarum (Acute) Adopted (Acute) (Acute) Pelvic pain (Acute) Vasovagal syncope (Acute) Vitamin D deficiency (Chronic) Depression (Chronic) Anxiety (Chronic) - Plan: Anesthesia for epidural?: Yes Continue to labor down?: Yes Plan for ?: No Continue to monitor?: Yes Start pushing?: No Comment:: She is admitted in active labor. We have ruptured her membranes. We plan to deliver her vaginally.
--- NOTE | 2022-05-21 22:47 | HMH.DN ---
- Delivery Note Delivery Date:: 05/21/22 Delivery Time:: 22:35 Anesthesia Type: Epidural Was labor medically induced?: No Induction method: none Gestational age (weeks): 37 delivered prior to 39 weeks?: Yes Justification for early elective delivery:: Active Labor Infant Gender: Male at 1 minute: 8 at 5 minutes: 9 LAC or MLE?: LAC Delivery Procedure:: She is a 22-year-old 2 para 1 at 37 and 6 weeks gestational age. She came in in active labor. She was found to be 5 cm dilated. She had her membranes ruptured and was augmented with oxytocin. Under labor epidural progressed to full dilation and delivered spontaneously a liveborn male child at 10:35 PM in the evening of May 21, 2022. On delivery of the head the anterior shoulder then easily delivered followed by the rest infant's body atraumatically. The baby was vigorous. The oropharynx and nasopharynx were bulb suctioned. We allowed the cord to continue to pulsate for approximately 1 minute. The cord was then doubly clamped and cut and the infant was placed on the mother's abdomen for further care. The nurses assigned Apgars of 8 at 1 minute and 9 at 5 minutes. We then obtained cord blood. She received IV oxytocin using gentle traction on the cord and countertraction on the fundus I was able to easily deliver the placenta intact. He had a normal three-vessel cord. She had a first-degree posterior vaginal laceration that was repaired with a single [id number] 3-0 Vicryl Rapide suture. She had a midline tear just below the clitoris and up into the left side and using interrupted [id number] 3-0 Vicryl Rapide suture I was able to reapproximate the tissue. There was a small bleeding blood vessel and I obtained hemostasis by reapproximating this tissue. She has O+ blood, she is rubella immune and was group B streptococcus negative. She plans to breast-feed. Her estimated blood loss was approximately 250 cc. Laceration:: vaginal, labial Placental Delivery Description: Spontaneous
[2022-05-22 02:08] LABS: POC Glucose,Bedside 62 (70-110)
[2022-05-22 07:32] LABS: Hematocrit 30.9 % (37.0-47.0)
[2022-05-22 07:39] LABS: Hemoglobin 10.4 g/dL (12.2-16.2)
[2022-05-22 08:29] VITALS: BP 135/61; PULSE 86; RESP 18; TEMP 36.8; O2SAT 95
--- NOTE | 2022-05-22 10:27 | HMH.ACPN2 ---
Internal Medicine - PN: Bar *Date: 05/22/22 *Time: 10:27 Interval history: She is doing very well this morning 1 day post vaginal delivery. She has some cramps and some minimal vaginal bleeding. She is eating and drinking and ambulating. She is voiding well. Exam Vital signs and Labs for Last 24 Hours: Temp Pulse Resp BP Pulse Ox 98.2 F 86 18 135/61 95 05/22/22 08:29 05/22/22 08:29 05/22/22 08:29 05/22/22 08:29 05/22/22 08:29 Laboratory Results - last 24 hr 05/21/22 18:00: Urine Opiates Screen Negative, Urine Methadone Screen Negative, Ur Barbituates Screen Negative, Ur Phencyclidine Scrn Negative, Ur Amphetamines Screen Negative, U Benzodiazepines Scrn Negative, Urine Cocaine Screen Negative, U Marijuana (THC) Screen Negative 05/21/22 18:00: Urine Color Dk yellow, Urine Appearance Cloudy, Urine pH 6.5, Ur Specific [place] 1.025, Urine Protein 2+, Urine Glucose (UA) Negative, Urine Ketones Negative, Urine Blood Trace-i, Urine Nitrate Negative, Urine Bilirubin Negative, Urine Urobilinogen 0.2, Ur Leukocyte Esterase 1+ A, Urine RBC Occasional, Urine WBC 20-50, Ur Squamous Epith Cells 3-5, Urine Bacteria 3+ 05/21/22 18:00: SARS-CoV-2 (PCR) Not detected, Influenza A Untype (PCR) Not detected, Influenza Type B (PCR) Not detected 05/21/22 18:16: WBC 13.8 H, RBC 4.32, Hgb 12.2, Hct 35.9 L, MCV 82.9, MCH 28.2, MCHC 34.0, RDW 15.0, Plt Count 427 H, MPV 7.6, Neut % (Auto) 77.6, Lymph % (Auto) 14.4, [place] % (Auto) 4.9, Eos % (Auto) 1.1, Baso % (Auto) 2.0, Neut # (Auto) 10.7 H, Lymph # (Auto) 2.0, [place] # (Auto) 0.7, Eos # (Auto) 0.2, Baso # (Auto) 0.3 H 05/21/22 18:16: Blood Type O Positive, Antibody Screen Negative 05/21/22 23:04: POC Glucose 62 L 05/22/22 06:30: Hgb 10.4 L D, Hct 30.9 L I & O for Last 24 hours: Intake & Output 05/19/22 05/20/22 05/21/22 05/22/22 11:59 11:59 11:59 11:59 Weight 288 lb - Constitutional no acute distress - *Routine HEENT Exam Head: Present: normocephalic Eye: Present: EOMI, PERRL ENT: Present: mucous membranes moist Assessment and Plan (1) Normal delivery at term Status: Acute Category: Medical Code(s): O80 - Encounter for full-term uncomplicated delivery - Assessment and plan all Dx Assessment and Plan for all problems:: She continues to do well. We will plan to send her home tomorrow.
[2022-05-22 13:19] VITALS: BP 122/64; PULSE 88; RESP 18; TEMP 37; O2SAT 98
[2022-05-22 20:00] VITALS: BP 118/70; PULSE 90; RESP 18; TEMP 36.6; O2SAT 98
[2022-05-23 04:00] VITALS: BP 121/82; PULSE 94; RESP 17; TEMP 36.6; O2SAT 98
[2022-05-23 08:47] VITALS: BP 131/86; PULSE 95; RESP 16; TEMP 36.4; O2SAT 97
--- NOTE | 2022-05-23 10:14 | [facility].DCSUM ---
General - General Admission date:: 05/21/22 Discharge date: 05/23/22 HPI HPI: Admitted in active labor at 37+ weeks Normal vaginal delivery course uncomplicated She is discharged home on PPD #2 in stable condition She is tolerating a regular diet without N/V She is ambulating and voiding without difficulty Lochia is appropriate Pain control sufficient with tylenol and ibuprofen She declines narcotic pain medication at discharge Hospital Course Hospital Course: as per HPI Rhogam Administration: Not Indicated Objective Vital signs: Temp Pulse Resp BP Pulse Ox 97.5 F L 95 H 16 131/86 97 05/23/22 08:47 05/23/22 08:47 05/23/22 08:47 05/23/22 08:47 05/23/22 08:47 Narrative: CONSTITUTIONAL: no acute distress HEENT: mucous membranes moist PULMONARY: breathing unlabored without audible wheezes CV: no tachycardia or visible JVD; normal LE peripheral pulses ABD: soft, NT/ND, no guarding : fundus firm below umbilicus SKIN: no visible rash or lesions EXT: 1+ edema LEs NEURO: alert/oriented, no altered mental status PSYCH: appropriate mood and demeanor without visible anxiety/depression Results Labs on day of discharge: Preliminary micro results at discharge 05/21/22 18:00 Urine Culture - Preliminary Urine,Clean Catch NO GROWTH AFTER 24 HOURS DS: Diagnosis - Discharge Diagnosis (1) Normal delivery at term Status: Acute (2) Large for gestational age fetus Status: Acute Problem details: 82%) Discharge Plan - Patient Discharge Instructions ACTIVITY: Continue current activity DIET: regular diet Additional Instructions: -No heavy lifting/strenuous activity -Nothing in the vagina for 6 weeks -No driving for 2 weeks or while taking prescription narcotics -Follow up with MD as scheduled Patient Instructions: Depression, Hemorrhage, DI for Labor and Delivery, Vaginal , DI for Pre-eclampsia, [facility] Post Discharge Instructions, Preventing the Spread of Coronavirus Discharge Instructions - Follow up Plan Follow up with: Nubia Ivey MD [Staff Physician] - 06/04/22 1:45 pm Disposition: Home, Self-Care Condition at discharge:: Stable Home Medications: Home Medications Medication Instructions Recorded Confirmed Type Ibuprofen [Motrin 400mg 800 mg PO Q6HP PRN #40 tab 05/23/22 Rx tablet] Prescriptions/Medication Reconciliation: New Acetaminophen [Acetaminophen 325mg tab] 650 mg PO Q4HP PRN tab PRN Reason: Mild Pain Ibuprofen [Motrin 400mg tablet] 800 mg PO Q6HP PRN #40 tab PRN Reason: Mild To Moderate Pain - Problem Reconciliation Problems Reviewed?: Yes
== END 2022-05-23 12:40 | disposition home or self-care (01) | DRG 807 ==
LOC: OBOUT 17:41 → OB 05-22 00:18
PROVIDERS: Admitting Provider Nurse Practitioner Obstetrics & Gynecology; PCP Physician Assistant; Visit Provider Nurse Practitioner Obstetrics & Gynecology
DX: O70.0 First degree perineal laceration during delivery (principal); Z37.0 Single live birth; Z3A.37 37 weeks gestation of pregnancy; O36.63X0 Maternal care for excessive fetal growth, third trimester, not applicable or unspecified
CPT/HCPCS: 59409; 36415; 59025; 80305; 81001; 82962; 85014; 85018; 85025; 86850; 87086; 94761; C1758; C9803; G0283; G0378; U0003; U0005

== ENCOUNTER 2023-01-08 20:33 | Emergency (ER) | payer OTHER, SELFPAY ==
--- NOTE | 2023-01-08 20:46 | PC.NURSE ---
Pt something to drink
--- NOTE | 2023-01-08 21:12 | PC.NURSE ---
Pt advised she was able to drink and keep it down
[2023-01-08 22:38] VITALS: BP 127/78; PULSE 79; RESP 16; TEMP 36.6; O2SAT 100; BMI 38.4
--- NOTE | 2023-01-08 22:39 | PC.NURSE ---
Dr. Taylor to see pt
--- NOTE | 2023-01-08 22:47 | CT_ITS ---
PROCEDURE INFORMATION: Exam: CT Neck With Contrast Exam date and time: 01/08/2023 11:21 PM Age: 22 years old Clinical indication: Other: Fb sensation; Patient HX: Patient states sensation of fb in back of throat x3 days. ; Additional info: Fb sensation in throat TECHNIQUE: Imaging protocol: Computed tomography of the neck with contrast. Radiation optimization: All CT scans at this facility use at least one of these dose optimization techniques: automated exposure control; mA and/or kV adjustment per patient size (includes targeted exams where dose is matched to clinical indication); or iterative reconstruction. Contrast material: ISOVUE; Contrast volume: 75 ml; Contrast route: IV; Other protocol: This patient has received 0 known CTs and 0 known cardiac nuclear medicine studies in the 12 months prior to the current study. COMPARISON: CT HEAD/BRAIN WO CON 06/16/2020 2:36 PM FINDINGS: Paranasal sinuses: Large bilateral maxillary sinus mucous retention cysts are identified. Pharynx: Bilateral peritonsillar calcifications are identified suggesting old infection/inflammation. Larynx: Unremarkable. Epiglottis is normal. Prevertebral and retropharyngeal spaces: Unremarkable. Salivary glands: Normal. Glands are normal in size. Thyroid: Normal. No enlarged or calcified nodules. Lymph nodes: Unremarkable. No lymphadenopathy. Trachea: Visualized trachea is unremarkable. Lungs: Unremarkable as visualized. Bones/joints: Unremarkable. No acute fracture. Soft tissues: Unremarkable. No significant soft tissue swelling. IMPRESSION: 1. No evidence of acute process. 2. No radiopaque foreign body identified.
[2023-01-08 23:01] LABS: Basophils # 0.2 K/mm3 (0-0.2); Basophils % 1.8 % (0.1-2.0); Eosinophils # 0.3 K/mm3 (0.0-0.4); Eosinophils % 2.5 % (0.1-12.0); Hematocrit 46.9 % (37.0-47.0); Hemoglobin 15.2 g/dL (12.2-16.2); Lymphocytes # 3.3 K/mm3 (0.7-4.5); Lymphocytes % 27.7 % (10-50); Mean Corpuscular HGB Conc 32.5 g/dL (31.8-35.4); Mean Corpuscular Hemoglobin 26.8 pg (27.0-31.2); Mean Corpuscular Volume 82.7 fl (81-99); Mean Platelet Volume 6.9 fl (7.4-10.4); Monocytes # 0.4 K/mm3 (0.1-1.0); Monocytes % 3.7 % (1.7-9.3); Neutrophils # 7.7 K/mm3 (1.8-7.8); Neutrophils % 64.4 % (37.0-80.0); Platelet Count 467 K/mm3 (142-424); Red Blood Count 5.67 M/mm3 (4.20-5.40); White Blood Count 11.9 K/mm3 (4.8-10.8)
[2023-01-08 23:07] LABS: Urine Pregnancy, HCG Qual. Negative (Negative)
[2023-01-08 23:32] LABS: Erythrocyte Sedimentation Rate 13 mm/hr (0-20)
[2023-01-09 00:31] VITALS: BP 95/76; PULSE 85; O2SAT 98
--- NOTE | 2023-01-09 00:48 | PC.NURSE ---
Rechecked pt. No needs voiced at this time. Pt aware MD will be in shortly.
[2023-01-09 01:15] LABS: Alanine Aminotransferase 31 U/L (12-78); Albumin Level 5.2 g/dl (3.5-5.0); Albumin/Globulin Ratio 1.4 (1.1-1.8); Alkaline Phosphatase 150 U/L (38-126); Anion Gap 12.7 mEq/L (5-15); Aspartate Amino Transferase 36 U/L (14-36); Bilirubin,Total 0.7 mg/dl (0.2-1.3); Blood Urea Nitrogen 11 mg/dl (7-17); Calcium 9.6 mg/dl (8.4-10.2); Carbon Dioxide 25 mmol/L (22.0-30.0); Chloride 106 mmol/L (98-107); Creatinine Clearance Estimated 233 mL/min (50-200); Estimated Glomerular Filt Rate 104 ml/min (>60); GFR (African American) 125 ML/MIN (>60); Globulin 3.8 g/dL (1.3-3.2); Glucose 92 mg/dl (74-100); Potassium 3.7 mmoL/L (3.5-5.1); Sodium 140 mmol/L (136-145)
[2023-01-09 01:20] LABS: C-Reactive Protein 10.7 mg/L (0-4)
[2023-01-09 01:53] VITALS: BP 119/78; PULSE 81; RESP 16; TEMP 36.6; O2SAT 98
--- NOTE | 2023-01-09 02:31 | HMH.EDSKAF ---
Discharge Plan Disposition Patient Disposition: Home, Self-Care Chief Complaint: Skin/Abscess/Foreign Body Referrals Follow up/Referrals: Gabby Olivas PA [Primary Care Provider] - See instructions Clinical Impressions Clinical Impression: Disorder of epiglottis Instructions Patient Instructions: DI for Epiglottitis-Adult Discharge ED Provider: Brandon (ED)Dereje Skin/Abscess/FB HPI General Chief complaint: Skin/Abscess/Foreign Body Stated complaint: feels like something stung in throat Time Seen by Provider: 01/09/23 06:36 Mode of Arrival: Ambulatory Source of Information: Patient and Medical Record Limitations: No Limitations Description of Symptoms (Recalled from ER Triage Doc. by RN): Pt reports a fb sensation in throat for 3 days. She reports some difficulty swallowing but is able. History of Present Illness HPI narrative: pt with feeling of sob and fb in ant throat over the last few days with some pain with swallowing - mild dysphonia - no fever - no rash or trauma - Onset (ago): day(s) Location: neck Severity: moderate Consistency: constant Associated symptoms: denies other symptoms Related Data Allergies Allergy/AdvReac Type Severity Reaction Status Date / Time hydrocodone Allergy Severe SEIZURES Verified 07/05/22 14:53 ON HALF OF MY BODY PFSH PFS Disclaimer: The information contained in this section may have been updated after the patient was seen, as this information can be updated by other users. Medical History (Updated 01/09/23 @ 06:42 by Dereje Taylor (ED)MD) Anxiety Depression Vitamin D deficiency Social History Smoking Status: Current every day smoker alcohol intake: never substance use type: denies use current occupational status: employed Travel in the last 8 weeks: None ROS Obtained: Yes All systems reviewed & no additional complaints except as documented Physical Exam General General appearance: alert Head Head exam: normocephalic Eye Eye exam: Present PERRL and EOMI ENT ENT exam: Present normal oropharynx, mucous membranes moist and other (no def thyroid tenderness ) Neck Neck exam: Present full ROM and trachea midline; Absent meningismus, lymphadenopathy or thyromegaly Respiratory Respiratory exam: Present normal lung sounds bilaterally Cardiovascular Cardiovascular exam: Present regular rate Abdominal Exam Abdominal exam: Present soft Extremities Exam Extremities exam: Present full ROM Neurological Exam Neurological exam: Present alert, oriented X3 and CN II-XII intact; Absent motor sensory deficit Psychiatric Psychiatric exam: Present normal affect Skin Skin exam: Absent rash Lymphatic Lymphatic Findings: no adenopathy Medical Decision Making Medical Records Medical records reviewed: Yes I reviewed the patient's medical records. [place] Inquiry Pt receiving controlled substance: No Vital Signs: 01/08/23 22:38 01/09/23 00:31 01/09/23 01:53 Temperature 97.9 F 97.9 F Temperature Source Oral Oral Pulse Rate 85 81 Pulse Rate [Right Radial] 79 Respiratory Rate 16 16 Blood Pressure 95/76 L 119/78 Blood Pressure [Right Arm] 127/78 Blood Pressure Mean [Right Arm] 94 Blood Pressure Source [Right Arm] Automatic Cuff Blood Pressure Position [Right Arm] Sitting 02 Sat by Pulse Oximetry 100 98 Oxygen Delivery Method Room Air Room Air Lab Data Lab results reviewed: Yes I reviewed the patient's lab results. Lab Results 01/08/23 22:53: WBC 11.9 H, RBC 5.67 H, Hgb 15.2, Hct 46.9, MCV 82.7, MCH 26.8 L, MCHC 32.5, RDW 15.0, Plt Count 467 H, MPV 6.9 L, Neut % (Auto) 64.4, Lymph % (Auto) 27.7, Gila % (Auto) 3.7, Eos % (Auto) 2.5, Baso % (Auto) 1.8, Neut # (Auto) 7.7, Lymph # (Auto) 3.3, Gila # (Auto) 0.4, Eos # (Auto) 0.3, Baso # (Auto) 0.2, ESR 13 01/08/23 22:53: Sodium 140, Potassium 3.7, Chloride 106, Carbon Dioxide 25, Anion Gap 12.7, BUN 11, Creatinine 0.70, Estimated Creat Clear 233, Estimated GFR 1
== END 2023-01-09 06:45 | disposition home or self-care (01) ==
PROVIDERS: Emergency Provider Emergency Medicine; PCP Physician Assistant
DX: J05.10 Acute epiglottitis without obstruction (principal); F41.9 Anxiety disorder, unspecified; E55.9 Vitamin D deficiency, unspecified; F17.210 Nicotine dependence, cigarettes, uncomplicated
CPT/HCPCS: 70491; 80053; 81025; 85025; 85651; 86140; 99285; Q9967

== ENCOUNTER → 2023-02-07 11:08 | Outpatient (CLI) | payer OTHER, SELFPAY ==
[2023-02-07 12:03] LABS: Hematocrit 37.4 % (37.0-47.0); Hemoglobin 12.5 g/dL (12.2-16.2)
[2023-02-07 12:39] LABS: HCG,Quantitative < 2 mIU/ml (0-5.42)
== END ==
PROVIDERS: PCP Physician Assistant; Visit Provider Obstetrics & Gynecology
DX: N93.9 Abnormal uterine and vaginal bleeding, unspecified (principal)
CPT/HCPCS: 36415; 84702; 85014; 85018

== ENCOUNTER → 2023-02-13 15:17 | Outpatient (CLI) | payer OTHER, SELFPAY ==
--- NOTE | 2023-02-13 15:18 | US_ITS ---
FINAL REPORT CLINICAL HISTORY: Abnormal uterine bleeding x2 weeks COMPARISON: None FINDINGS: Transvaginal sonographic images of the pelvis were obtained. The uterus measures 8.3 x 4.9 x 6.6 cm which is somewhat enlarged. The endometrium measures 11 mm, which is within normal limits. Questionable small calcification in the uterus. The right ovary measures 3.7 cm in length and left ovary measures 4.5 cm in length. Normal blood flow seen to the ovaries. Numerous small follicles in the bilateral ovaries. PCOS is not excluded. There is no evidence of free fluid. IMPRESSION: Somewhat enlarged uterus. Numerous small follicles in the bilateral ovaries, PCOS not excluded. Reviewed, Interpreted and Dictated by Vitaliy Orona III, MD Transcribed by Chitra Romero Authenticated and [facility]
== END ==
PROVIDERS: PCP Physician Assistant; Visit Provider Obstetrics & Gynecology
DX: N92.1 Excessive and frequent menstruation with irregular cycle (principal); N93.9 Abnormal uterine and vaginal bleeding, unspecified
CPT/HCPCS: 76830

== ENCOUNTER → 2023-05-22 11:00 | Outpatient (CLI) | payer OTHER, SELFPAY ==
[2023-05-24 19:35] LABS: HBsAg Screen Negative (Negative); HCV Ab Non Reactive (Non Reactive); Hep A Ab, IGM Negative (Negative); Hep B Core Ab, IgM Negative (Negative)
[2023-05-25 11:13] LABS: Peripheral Smear Review Scanned Result
== END ==
PROVIDERS: PCP Physician Assistant; Visit Provider Physician Assistant
DX: R74.8 Abnormal levels of other serum enzymes (principal)
CPT/HCPCS: 80074

== ENCOUNTER → 2023-05-22 18:49 | Outpatient (CLI) | payer OTHER, SELFPAY ==
[2023-05-22 19:47] LABS: Basophils % 0.3 % (0.1-2.0); Eosinophils # 0.3 K/mm3 (0.0-0.4); Eosinophils % 2.2 % (0.1-12.0); Hematocrit 39.6 % (37.0-47.0); Hemoglobin 13.1 g/dL (12.2-16.2); Lymphocytes # 2.8 K/mm3 (0.7-4.5); Lymphocytes % 25.1 % (10-50); Mean Corpuscular HGB Conc 33.1 g/dL (31.8-35.4); Mean Corpuscular Hemoglobin 26.8 pg (27.0-31.2); Mean Platelet Volume 7.7 fl (7.4-10.4); Monocytes # 0.5 K/mm3 (0.1-1.0); Monocytes % 4.8 % (1.7-9.3); Neutrophils # 7.6 K/mm3 (1.8-7.8); Neutrophils % 67.6 % (37.0-80.0); Platelet Count 450 K/mm3 (142-424); Red Blood Count 4.88 M/mm3 (4.20-5.40); Red Cell Distribution Width 14.4 % (11.5-17.5); White Blood Count 11.3 K/mm3 (4.8-10.8)
[2023-05-22 20:06] LABS: Alanine Aminotransferase 28 U/L (12-78); Albumin Level 4.5 g/dl (3.5-5.0); Albumin/Globulin Ratio 1.5 (1.1-1.8); Alkaline Phosphatase 140 U/L (38-126); Anion Gap 18.4 mEq/L (5-15); Aspartate Amino Transferase 29 U/L (14-36); Bilirubin,Total 0.2 mg/dl (0.2-1.3); Blood Urea Nitrogen 12 mg/dl (7-17); Calcium 9.3 mg/dl (8.4-10.2); Carbon Dioxide 23 mmol/L (22.0-30.0); Chloride 104 mmol/L (98-107); Chol/HDL Ratio 3.2 (1-3.5); Cholesterol 204 mg/dl (140-200); Estimated Glomerular Filt Rate 123 ml/min (>60); GFR (African American) 149 ML/MIN (>60); Globulin 3.1 g/dL (1.3-3.2); Glucose 82 mg/dl (74-100); HDL Cholesterol 63 mg/dl (40-60); Potassium 4.4 mmoL/L (3.5-5.1); Sodium 141 mmol/L (136-145); Total Protein,Serum 7.6 g/dl (6.3-8.2); Triglycerides 146 mg/dl (30-150); VLDL Cholesterol 29 mg/dL (0-40)
[2023-05-22 20:18] LABS: Direct LDL Cholesterol 111.03 mg/dL (100-129)
[2023-05-22 20:24] LABS: 25-OH Vitamin D, Total 32.5 ng/mL (30-100)
[2023-05-22 20:37] LABS: Thyroid Stimulating Hormone 1.21 uIU/mL (0.465-4.68)
[2023-05-22 22:37] LABS: Vitamin B12 219 pg/mL (239-931)
== END ==
PROVIDERS: PCP Physician Assistant; Visit Provider Physician Assistant
DX: F41.9 Anxiety disorder, unspecified (principal); E55.9 Vitamin D deficiency, unspecified; Z79.899 Other long term (current) drug therapy
CPT/HCPCS: 80053; 80061; 82306; 82607; 84443; 85025

== ENCOUNTER → 2023-06-12 09:04 | Outpatient (CLI) | payer OTHER, SELFPAY ==
--- NOTE | 2023-06-12 09:05 | US_ITS ---
FINAL REPORT CLINICAL HISTORY: Elevated alkaline phosphatase level COMPARISON: None FINDINGS: Sonographic images of the right upper quadrant were obtained. The pancreas is partially obscured. There are several hyperechoic foci identified in the liver, that may represent either ileus of focal fatty infiltration or possibly hemangiomas. The gallbladder appears normal without evidence of gallstones.There is no evidence of biliary ductal dilatation.The common duct measures 2 mm. Limited images of the right kidney are unremarkable. IMPRESSION: Hyperechoic foci present in the liver, most likely represent either focal fatty infiltration or hemangiomas. If clinically indicated would suggest either CT or MRI using possible mass protocol for liver imaging. Otherwise unremarkable upper abdominal ultrasound. Reviewed, Interpreted and Dictated by Vitaliy Orona III, MD Transcribed by Felicia Maharaj Authenticated and [facility]
== END ==
PROVIDERS: PCP Physician Assistant; Visit Provider Physician Assistant
DX: R74.8 Abnormal levels of other serum enzymes (principal)
CPT/HCPCS: 76705

== ENCOUNTER → 2023-06-27 08:04 | Outpatient (CLI) | payer OTHER, SELFPAY ==
--- NOTE | 2023-06-27 08:15 | MR_ITS ---
FINAL REPORT CLINICAL HISTORY: possible mass of liver. ABNORMAL US IMAGING. UPPER ABDOMINAL PAIN COMPARISON: 06/12/2023 FINDINGS: Multiplanar MR imaging of the abdomen was performed without contrast. Images of the liver reveal no evidence of mass. There is no evidence of biliary ductal dilatation. The gallbladder has an unremarkable appearance. No other mass or adenopathy is identified. No abnormal fluid collection is seen. No abnormal contrast enhancement is seen on the postcontrast images. IMPRESSION: Unremarkable exam. No abnormal mass or fluid collection. Reviewed, Interpreted and Dictated by Castro Chen MD Transcribed by Laurence Peterson Authenticated and . [facility]
== END ==
PROVIDERS: PCP Physician Assistant; Visit Provider Emergency Medicine
DX: R16.0 Hepatomegaly, not elsewhere classified (principal)
CPT/HCPCS: 74181

== ENCOUNTER → 2023-08-22 23:34 | Outpatient (CLI) | payer OTHER, SELFPAY ==
[2023-08-22 18:49] LABS: Adenovirus,PCR Not Detected (NotDetected); Bordetella Pertussis Not Detected (NotDetected); Chlamydophila Pneumoniae, PCR Not Detected (NotDetected); Coronavirus 19, PCR Not Detected (NotDetected); Coronavirus 229E Not Detected (NotDetected); Coronavirus NL63 Not Detected (NotDetected); Coronavirus OC43 Not Detected (NotDetected); Coronovirus HKU1,PCR Not Detected (NotDetected); Human Metapneumovirus Not Detected (NotDetected); Influenza A, PCR Not Detected (NotDetected); Influenza AH1, 2009 Not Detected (NotDetected); Influenza AH1, PCR Not Detected (NotDetected); Influenza AH3,PCR Not Detected (NotDetected); Mycoplasma Pneumoniae, PCR Not Detected (NotDetected); Parainfluenza 1, PCR Not Detected (NotDetected); Parainfluenza 2, PCR Not Detected (NotDetected); Parainfluenza 3, PCR Not Detected (NotDetected); Parainfluenza 4, PCR Not Detected (NotDetected); Respiratory Syncytial Virus Not Detected (NotDetected)
[2023-08-22 20:13] LABS: Influenza B, PCR Not Detected (NotDetected); Rhinovirus/Enterovirus Detected (NotDetected)
== END ==
PROVIDERS: PCP Physician Assistant; Visit Provider Student in an Organized Health Care Education/Training Program
DX: J02.9 Acute pharyngitis, unspecified (principal); B34.1 Enterovirus infection, unspecified; R06.09 Other forms of dyspnea; R09.81 Nasal congestion
CPT/HCPCS: 87581; 87632; 87798

== ENCOUNTER 2024-04-27 15:04 | Outpatient (CLI) | payer OTHER, SELFPAY ==
--- NOTE | 2024-04-27 15:07 | XR_ITS ---
FINAL REPORT TECHNIQUE: Chest PA & Lateral CLINICAL HISTORY: SOA FINDINGS: 2 views of the chest were performed. The heart size is normal. The mediastinum is within normal limits. There is a localized airspace infiltrate in the right midlung consistent with acute pneumonia. The left lung is clear. There are no pleural effusions. There is no pneumothorax. The bony thorax appears intact. IMPRESSION: Right midlung pneumonia. Reviewed, Interpreted and Dictated by Orlando Fung MD Transcribed by Isi Shell Authenticated and [facility]
== END 2024-04-27 23:59 | disposition home or self-care (01) ==
LOC: RAD 15:05
PROVIDERS: PCP Physician Assistant; Visit Provider Nurse Practitioner Family
DX: R06.02 Shortness of breath (principal)
CPT/HCPCS: 71046

== ENCOUNTER 2024-10-17 09:52 | Emergency (ER) | payer BC, SELFPAY ==
[2024-10-17] VITALS (13 sets, daily range): BP systolic 105–171; BP diastolic 68–100; PULSE 54–122; RESP 16–18; TEMP 36.6–36.7; O2SAT 96–100; BMI 36.6
--- NOTE | 2024-10-17 10:26 | CT_ITS ---
PROCEDURE INFORMATION: Exam: CT Head Without Contrast Exam date and time: 10/17/2024 11:27 AM Age: 24 years old Clinical indication: Injury or trauma; Fall; Blunt trauma (contusions or hematomas); Additional info: Fall L head, headache, nausea TECHNIQUE: Imaging protocol: Computed tomography of the head without contrast. Radiation optimization: All CT scans at this facility use at least one of these dose optimization techniques: automated exposure control; mA and/or kV adjustment per patient size (includes targeted exams where dose is matched to clinical indication); or iterative reconstruction. COMPARISON: No relevant prior studies available. FINDINGS: Brain: No acute infarct, hemorrhage, mass, or mass effect. Cerebral ventricles: Normal ventricles. No appreciable extra-axial fluid. Paranasal sinuses: Polyps versus mucous retention cysts in the bilateral maxillary sinuses. Mastoid air cells: Clear. Orbital cavities: Orbits are unremarkable. Sella is unremarkable. Bones: Unremarkable. Soft tissues: Unremarkable. IMPRESSION: No acute intracranial abnormality.
[2024-10-17] MEDS: ONDANSETRON 4MG ODT 4 MG SL (10:29)
[2024-10-17] MEDS: ACETAMINOPHEN 500MG TAB 1000 MG PO (10:30)
[2024-10-17 10:41] LABS: Urine Pregnancy, HCG Qual. Negative (Negative)
--- NOTE | 2024-10-17 10:50 | CT_ITS ---
PROCEDURE INFORMATION: Exam: CTA Neck With Contrast Exam date and time: 10/17/2024 11:30 AM Age: 24 years old Clinical indication: Injury or trauma; Fall; Blunt trauma; Head; Additional info: Fall, b/l neck pain TECHNIQUE: Imaging protocol: Computed tomographic angiography of the neck with contrast. Exam focused on the cervical segments of the vasculature. 3D rendering (Not supervised by radiologist): MIP and/or 3D reconstructed images were created by the technologist. Radiation optimization: All CT scans at this facility use at least one of these dose optimization techniques: automated exposure control; mA and/or kV adjustment per patient size (includes targeted exams where dose is matched to clinical indication); or iterative reconstruction. Contrast material: ISO 370; Contrast volume: 80 ml; Contrast route: INTRAVENOUS (IV); COMPARISON: CT ANGIO HEAD 10/17/2024 11:30 AM FINDINGS: Right common carotid artery: No stenosis. No dissection or occlusion. Right internal carotid artery: No stenosis of the extracranial segment. No dissection or occlusion. Right external carotid artery: No occlusion or stenosis of the origin. Left common carotid artery: No stenosis. No dissection or occlusion. Left internal carotid artery: No stenosis of the extracranial segment. No dissection or occlusion. Left external carotid artery: No occlusion or stenosis of the origin. Right vertebral artery: No stenosis. No dissection or occlusion. Left vertebral artery: No stenosis. No dissection or occlusion. Soft tissues: Normal. No significant soft tissue swelling. Bones/joints: No acute fracture. IMPRESSION: No stenosis or occlusion. REFERENCES: NASCET CRITERIA. The degree of stenosis in the cervical segment of the internal carotid artery is based on NASCET criteria. Normal is no stenosis. Mild is less than 50% stenosis. Moderate is 50-69% stenosis. Severe is 70% to 99% stenosis. Total occlusion is no detectable patent lumen.
--- NOTE | 2024-10-17 10:50 | CT_ITS ---
PROCEDURE INFORMATION: Exam: CTA Head With Contrast, Arteriography Exam date and time: 10/17/2024 11:30 AM Age: 24 years old Clinical indication: Injury or trauma; Fall; Blunt trauma; Head; Additional info: Fall, b/l neck and head pain TECHNIQUE: Imaging protocol: Computed tomographic angiography of the head with contrast. Exam focused on the arteries. 3D rendering (Not supervised by radiologist): MIP and/or 3D reconstructed images were created by the technologist. Radiation optimization: All CT scans at this facility use at least one of these dose optimization techniques: automated exposure control; mA and/or kV adjustment per patient size (includes targeted exams where dose is matched to clinical indication); or iterative reconstruction. Contrast material: ISO 370; Contrast volume: 80 ml; Contrast route: INTRAVENOUS (IV); COMPARISON: CT HEAD/BRAIN WO CON 10/17/2024 11:27 AM FINDINGS: ANTERIOR CIRCULATION: Right internal carotid artery: Intracranial segment is patent with no significant stenosis. No aneurysm. Right middle cerebral artery: No occlusion or significant stenosis. No aneurysm. Right anterior cerebral artery: No occlusion or significant stenosis. No aneurysm. Left internal carotid artery: Intracranial segment is patent with no significant stenosis. No aneurysm. Left middle cerebral artery: No occlusion or significant stenosis. No aneurysm. Left anterior cerebral artery: No occlusion or significant stenosis. No aneurysm. POSTERIOR CIRCULATION: Right vertebral artery: No occlusion or significant stenosis. No aneurysm. Left vertebral artery: No occlusion or significant stenosis. No aneurysm. Basilar artery: No occlusion or significant stenosis. No aneurysm. Right posterior cerebral artery: No occlusion or significant stenosis. No aneurysm. Left posterior cerebral artery: No occlusion or significant stenosis. No aneurysm. Brain: No definite mass, mass effect, or midline shift. Cerebral ventricles: No ventriculomegaly. Bones/joints: Unremarkable. No acute fracture. Soft tissues: Unremarkable. IMPRESSION: No large vessel stenosis or occlusion.
--- NOTE | 2024-10-17 10:51 | HMH.EDGENADL ---
Discharge Plan Disposition Patient Disposition: Home, Self-Care Chief Complaint: Headache Prescriptions Prescriptions: New ondansetron 4 mg tablet,disintegrating 4 mg PO Q8H PRN (Reason: nausea and vomiting) 4 Days Qty: 12 0RF No Action venlafaxine [Effexor XR] 75 mg capsule,extended release 24hr 75 mg PO DAILY Qty: 30 2RF prednisone 20 mg tablet 20 mg PO BID 5 Days Qty: 10 0RF azithromycin 250 mg tablet See Rx Instructions PO .COMPLEX Qty: 6 0RF Rx Instructions: take 500 mg today (day 1), then 250 mg for 4 days (days 2-5) benzonatate 100 mg capsule 100 mg PO TID PRN (Reason: cough) Qty: 30 0RF albuterol sulfate 90 mcg/actuation HFA aerosol inhaler 2 puff inhalation Q4-6H PRN (Reason: shortness of breath or wheezing) Qty: 8.5 0RF (DME) BD Integra Syringe 3 mL 25 gauge x 5/8 syringe See Rx Instructions .ROUTE .MEDSUPPLY Qty: 100 1RF Rx Instructions: To use for B-12 injection norgestimate-ethinyl estradiol [Estarylla] 0.25-35 mg-mcg tablet 1 tab PO DAILY Qty: 84 3RF Referrals Follow up/Referrals: Danny Puga APRN [Primary Care Provider] - See instructions Activity Restrictions/Add. Instructions Additional Instructions/Restrictions: At this time it was felt you are safe to be discharged home. For your headache please take Tylenol 1000 mg and ibuprofen 600 mg every 6 hours as needed. Please take your medication as prescribed. If new or worsening symptoms please do not hesitate to return the emergency department. Clinical Impressions Clinical Impression: Concussion Instructions Patient Instructions: Concussion Print Language Print Language: [place] Discharge ED Provider: Иван Wilcox General Adult HPI General Chief complaint: Headache Stated complaint: AO- 10/10/24- Pain L side of head, dizzy, naus Time Seen by Provider: 10/17/24 10:25 Mode of Arrival: Ambulatory Source of Information: Patient Limitations: No Limitations Description of Symptoms (Recalled from ER Triage Doc. by RN): Reports hitting her head on a dog cage on the 10th. States since then she has had a headache. Now she states that she is dizzy and has nausea. Denies LOC. History of Present Illness HPI narrative: Patient is a previous healthy 24-year-old who presents emergency department for evaluation of traumatic injury sustained on the . Patient fell into a door frame striking her left voodoo without loss of consciousness. Since then she has had intermittent dizziness that is not localizable, nausea without vomiting, left-sided headache, bilateral neck pain. Due to persistent symptoms she presents here for continued evaluation. No vision changes, no extremity weakness, no gait difficulties. Related Data Previous Rx's ?Medication ?Instructions ?Recorded venlafaxine 75 mg capsule,extended 75 mg PO DAILY #30 caps 05/22/23 release 24 hr (Effexor XR) syringe with needle, safety 3 mL #100 ea 05/26/23 25 gauge x 5/8 (BD Integra Syringe) albuterol sulfate 90 mcg/actuation 2 puff inhalation Q4-6H PRN 04/27/24 aerosol inhaler shortness of breath or wheezing #8.5 grams azithromycin 250 mg tablet See Rx Instructions PO .COMPLEX #6 04/27/24 tabs benzonatate 100 mg capsule 100 mg PO TID PRN cough #30 caps 04/27/24 prednisone 20 mg tablet 20 mg PO BID 5 days #10 tabs 04/27/24 norgestimate 0.25 mg-ethinyl 1 tab PO DAILY #84 tabs 07/01/24 estradiol 35 mcg tablet (Estarylla) ondansetron 4 mg disintegrating 4 mg PO Q8H PRN nausea and 10/17/24 tablet vomiting 4 days #12 tabs Allergies Allergy/AdvReac Type Severity Reaction Status Date / Time hydrocodone Allergy Severe SEIZURES Verified 04/27/24 14:19 ON HALF OF MY BODY [facility] Disclaimer: The information contained in this section may have been updated after the patient was seen, as this information can be updated by other users. Medical History BMI greater than 40 Adopted Vitamin D deficiency Depression Anxiety Surgical History No significant past surgical history Family History Other No significant family history Social History Smoking Status: Current every day smoker alcohol intake: never substance use type: denies use current occupational status: employed Travel in the last 8 weeks: None Other Medical History Have you received the Flu Vaccine for this season: No Have you received the Pneumonia Vaccine: No ROS Obtained: Yes Systems reviewed as appropriate & no additional complaints except as documented Physical Exam General General appearance: alert and in no apparent distress Head Head exam: atraumatic and normocephalic Eye Eye exam: Present PERRL and EOMI ENT ENT exam: Present mucous membranes moist Neck Neck exam: Present normal inspection and other (Able to range neck 45 degrees both directions); Absent tenderness Chest Chest inspection: Present normal inspection and symmetric chest wall rise Respiratory Respiratory exam: Present normal lung sounds bilaterally; Absent respiratory distress Cardiovascular Cardiovascular exam: Present regular rate and normal rhythm Abdominal Exam Abdominal exam: Present soft; Absent tenderness Extremities Exam Extremities exam: Present normal inspection Neurological Exam Neurological exam: Present alert, CN II-XII intact and normal gait; Absent motor sensory deficit Psychiatric Psychiatric exam: Present normal affect Skin Skin exam: Present warm and dry Medical Decision Making Medical Records Screening: Per USPSTF and CDC recommendations, given the prevalence of disease in our region, it is our hospital?s policy to screen for HIV and viral Hepatitis for all patients aged 18 and over and those with ongoing risk factors. [place] Inquiry Pt receiving controlled substance: No Vital Signs: 10/17/24 09:54 10/17/24 10:00 10/17/24 10:15 Temperature 98.1 F Temperature Source Oral Pulse Rate 103 H 94 H Pulse Rate [Radial] 122 H Respiratory Rate 18 Blood Pressure 159/84 H 141/77 H Blood Pressure [Right Arm] 147/91 H Blood Pressure Mean 105 98 Blood Pressure Mean [Right Arm] 109 Blood Pressure Source [Right Arm] Automatic Cuff Blood Pressure Position [Right Arm] Sitting 02 Sat by Pulse Oximetry 100 100 99 Oxygen Delivery Method Room Air Room Air Room Air 10/17/24 10:32 10/17/24 10:46 10/17/24 11:01 Temperature Temperature Source Pulse Rate 97 H 84 82 Pulse Rate [Radial] Respiratory Rate Blood Pressure 151/88 H 171/100 H 157/89 H Blood Pressure [Right Arm] Blood Pressure Mean 109 147 Blood Pressure Mean [Right Arm] Blood Pressure Source [Right Arm] Blood Pressure Position [Right Arm] 02 Sat by Pulse Oximetry 98 100 99 Oxygen Delivery Method Room Air Room Air Room Air 10/17/24 11:16 Temperature Temperature Source Pulse Rate 67 Pulse Rate [Radial] Respiratory Rate Blood Pressure 146/83 H Blood Pressure [Right Arm] Blood Pressure Mean Blood Pressure Mean [Right Arm] Blood Pressure Source [Right Arm] Blood Pressure Position [Right Arm] 02 Sat by Pulse Oximetry 98 Oxygen Delivery Method Room Air Lab Data Lab Results 10/17/24 10:25: Urine HCG, Qual Negative 10/17/24 10:56: WBC 9.2, RBC 4.85, Hgb 14.6, Hct 41.6, MCV 85.7, MCH 30.1, MCHC 35.1, RDW 13.7, Plt Count 337, MPV 6.9 L, Neut % (Auto) 72.7, Lymph % (Auto) 18.5, [place] % (Auto) 5.8, Eos % (Auto) 2.2, Baso % (Auto) 0.8, Neut # (Auto) 6.7, Lymph # (Auto) 1.7, [place] # (Auto) 0.5, Eos # (Auto) 0.2, Baso # (Auto) 0.1, Sodium 140, Potassium 3.9, Chloride 106, Carbon Dioxide 23, Anion Gap 14.9, BUN 12, Creatinine 0.70, Estimated Creat Clear 218, Estimated GFR 102, Est GFR ( Amer) 123, Glucose 113 H, Calcium 9.6 10/17/24 10:56 10/17/24 10:56 Orders (Tests/Meds): ED MEDICATIONS Discontinued Medications Generic Name Dose Route Start Last Admin Trade Name Finesseq PRN Reason Stop Dose Admin Acetaminophen 1,000 mg 10/17/24 10:26 10/17/24 10:30 Acetaminophen 500mg Tab PO 10/17/24 10:27 1,000 mg ONCE ONE Administration Diphenhydramine HCl 25 mg 10/17/24 10:54 10/17/24 11:03 Diphenhydramine 50mg/Ml Vial IV 10/17/24 10:55 25 mg ONCE ONE Administration Iopamidol 80 ml 10/17/24 11:35 10/17/24 11:36 Iopamidol-370 (76%);100ml Bottle IV 10/17/24 11:36 80 ml ONCE ONE Administration Ondansetron HCl 4 mg 10/17/24 10:27 10/17/24 10:29 Ondansetron 4mg Odt SL 10/17/24 10:28 4 mg ONCE ONE Administration Prochlorperazine Edisylate 5 mg 10/17/24 10:54 10/17/24 11:03 Prochlorperazine 10mg/2ml Vial IV 10/17/24 10:55 5 mg ONCE ONE Administration Sodium Chloride 10 ml 10/17/24 11:35 10/17/24 11:36 Sodium Chloride 0.9% 10ml Syr (Rad Only) IV 10/17/24 11:36 10 ml ONCE ONE Administration Sodium Chloride 50 ml 10/17/24 11:35 10/17/24 11:36 0.9 % Sodium Chloride 50 Ml Vial IV 10/17/24 11:36 50 ml ONCE ONE Administration ORDERS Category Date Time Status CT angio head Stat Cat Scan 10/17/24 10:[address] angio neck Stat Cat Scan 10/17/24 10:[address] head/brain wo con Stat Cat Scan 10/17/24 10:26 Completed BMP [Basic Metabolic Panel] Stat Lab 10/17/24 10:56 Completed CBC w/Auto Diff [Complete Blood Count Auto Diff] Stat Lab 10/17/24 10:56 Completed Urine , HCG Qual. Stat Lab 10/17/24 10:25 Completed Medical Decision Narrative: In summary patient is 24-year-old female past medical history described above who presents emergency department for evaluation of headache and dizziness in the setting of trauma. Patient is hemodynamically stable nontoxic-appearing upon arrival, afebrile. Differential includes epidural hematoma, traumatic cervical artery dissection, primary headache, among others. Workup we conducted with hematologic labs, CTA head and neck, noncontrasted CT scan head. Initial inventions include Tylenol, Compazine, Benadryl. Cervical spine is cleared clinically per [place] guidelines. Initial reviewed by me, hematologic labs are nonactionable, hCG negative. Noncontrasted CT scan informally visualized by me, no acute large intracranial hemorrhage. Formal read shows no acute intracranial abnormality. CTA head and neck nonactionable. Given this I think the patient likely has a concussion and is appropriate for outpatient management at this time. Upon repeat evaluation patient had large resolution of symptoms. Patient be discharged with a course of Zofran. Critical Care Critical Care Time Critical Care Time: No
[2024-10-17] MEDS: diphenhydrAMINE 50MG/ML VIAL 25 MG IV (11:03)
[2024-10-17] MEDS: PROCHLORPERAZINE 10MG/2ML VIAL 5 MG IV (11:03)
[2024-10-17 11:19] LABS: Basophils # 0.1 K/mm3 (0-0.2); Basophils % 0.8 % (0.1-2.0); Eosinophils # 0.2 K/mm3 (0.0-0.4); Eosinophils % 2.2 % (0.1-12.0); Hematocrit 41.6 % (37.0-47.0); Hemoglobin 14.6 g/dL (12.2-16.2); Lymphocytes # 1.7 K/mm3 (0.7-4.5); Lymphocytes % 18.5 % (10-50); Mean Corpuscular HGB Conc 35.1 g/dL (31.8-35.4); Mean Corpuscular Hemoglobin 30.1 pg (27.0-31.2); Mean Corpuscular Volume 85.7 fl (81-99); Mean Platelet Volume 6.9 fl (7.4-10.4); Monocytes # 0.5 K/mm3 (0.1-1.0); Monocytes % 5.8 % (1.7-9.3); Neutrophils # 6.7 K/mm3 (1.8-7.8); Neutrophils % 72.7 % (37.0-80.0); Platelet Count 337 K/mm3 (142-424); Red Blood Count 4.85 M/mm3 (4.20-5.40); Red Cell Distribution Width 13.7 % (11.5-17.5); White Blood Count 9.2 K/mm3 (4.8-10.8)
--- NOTE | 2024-10-17 11:22 | PC.NURSE ---
PT RETURNED FROM CT
[2024-10-17 11:32] LABS: Chloride 106 mmol/L (98-107); Potassium 3.9 mmoL/L (3.5-5.1); Sodium 140 mmol/L (136-145)
[2024-10-17 11:35] LABS: Anion Gap 14.9 mEq/L (5-15); Blood Urea Nitrogen 12 mg/dl (7-17); Carbon Dioxide 23 mmol/L (22.0-30.0); Creatinine Clearance Estimated 218 mL/min (50-200); Estimated Glomerular Filt Rate 102 ml/min (>60); GFR (African American) 123 ML/MIN (>60)
[2024-10-17 11:36] LABS: Calcium 9.6 mg/dl (8.4-10.2); Glucose 113 mg/dl (74-100)
[2024-10-17] MEDS: 0.9 % SODIUM CHLORIDE 50 ML VIAL IV (11:36)
[2024-10-17] MEDS: SODIUM CHLORIDE 0.9% 10ML SYR (RAD ONLY) 10 ML IV (11:36)
[2024-10-17] MEDS: IOPAMIDOL-370 (76%);100ML BOTTLE 80 ML IV (11:36)
--- NOTE | 2024-10-17 12:52 | PC.NURSE ---
DR AKY AT BEDSIDE TO REEVALUATE PT
== END 2024-10-17 12:57 | disposition home or self-care (01) ==
PROVIDERS: Emergency Provider Emergency Medicine; PCP Nurse Practitioner Family
DX: S06.0XAA Concussion with loss of consciousness status unknown, initial encounter (principal); R51.9 Headache, unspecified; R42 Dizziness and giddiness; R11.0 Nausea; M54.2 Cervicalgia; W01.198A Fall on same level from slipping, tripping and stumbling with subsequent striking against other object, initial encounter; Y93.89 Activity, other specified; Y92.9 Unspecified place or not applicable
CPT/HCPCS: 70450; 70496; 70498; 80048; 81025; 85025; 96374; 96375; 99285; J0780; J1200; Q0162; Q9967

== ENCOUNTER 2024-12-26 21:42 | Emergency (ER) | payer BC, SELFPAY ==
--- NOTE | 2024-12-26 21:39 | ECG_ITS ---
APPROVED REPORT Exam: Resting ECG HR:119 bpm ECG Measurements Heart Rate 119 AXES TN 146 P 65 QRSd 90 QRS 73 QT 349 T 38 QTc 420 Conclusion SINUS TACHYCARDIA POSSIBLE LEFT ATRIAL ENLARGEMENT [-0.1mV P-WAVE IN V1/V2] ABNORMAL RHYTHM ECG Electronically signed by : FAHAD KAY, 12/27/2024 21:33:00
[2024-12-26 21:43] VITALS: BP 134/105; PULSE 88; RESP 20; TEMP 36.8; O2SAT 100; BMI 37.3
--- NOTE | 2024-12-26 21:46 | HMH.EDGENADL ---
Discharge Plan Disposition Patient Disposition: Home, Self-Care Condition: Good Prescriptions Prescriptions: New hydroxyzine HCl 25 mg tablet 25 mg PO TID PRN (Reason: anxiety) Qty: 14 0RF No Action polymyxin B sulf-trimethoprim 10,000 unit- 1 mg/mL drops 1 drp ophthalmic (eye) Q3H 7 Days Qty: 10 0RF Rx Instructions: while awake; do not exceed 6 doses in 24 hours Referrals Follow up/Referrals: Danny Puga APRN [Primary Care Provider] - See instructions Julián Holman MD [Staff Physician] - See instructions (chest pain negative ER workup) Activity Restrictions/Add. Instructions Additional Instructions/Restrictions: You were evaluated in the ER and are appropriate for discharge at this time. Make an appointment with your primary care doctor for reevaluation in a few days. Discuss your anxiety with him. Take the prescribed hydroxyzine if needed for anxiety, do not drive or operate machinery after taking this medication as it may make you sleepy. Follow-up with cardiology, you have been referred to them for this purpose. Return to the ER with new, worsening, or otherwise concerning symptoms. Clinical Impressions Clinical Impression: Anxiety, Chest pain Print Language Print Language: [place] Discharge ED Provider: Johan Nolen General Adult HPI <Johan Nolen MD - Last Filed: 12/26/24 23:11> General Chief complaint: Chest Pain Stated complaint: chest pain Time Seen by Provider: 12/26/24 21:46 History of Present Illness HPI narrative: Patient presents for intermittent tachycardia, chest pain, nonradiating, nonpleuritic, nonexertional, positional, worsened by laying flat, with no associated preceding illness, fevers, chills, sick contacts, recent travel, leg pain, leg swelling, nor hemoptysis. Patient does report associated anxiety. Symptoms are intermittent in nature and resolve spontaneously. Please note that above description of symptoms, in this electronic medical record under categorization of recalled from ER triage doctor by RN are reflective of an initial nursing assessment, however, is not reflective of my full history and physical exam that was personally taken and clarified. Consequentially, this preceding description of symptoms, which may include the patient's categorized chief complaint in the EMR, do not reflect my personal clinical impression, and the ultimate description of history of present illness and patient stated complaints should be deferred to this section of the note. Unless stated otherwise or congruent with this section of the note, additional signs, symptoms, or incongruence should be interpreted as inaccurate with my clinical impression. Related Data Previous Rx's ?Medication ?Instructions ?Recorded polymyxin B sulfate 10,000 1 drp ophthalmic (eye) Q3H 7 days 11/01/24 unit-trimethoprim 1 mg/mL eye drops #10 mL hydroxyzine HCl 25 mg tablet 25 mg PO TID PRN anxiety #14 tabs 12/27/24 Allergies Allergy/AdvReac Type Severity Reaction Status Date / Time hydrocodone Allergy Severe SEIZURES Verified 11/01/24 14:41 ON HALF OF MY BODY [facility] <Johan Nolen MD - Last Filed: 12/26/24 23:11> [facility] Disclaimer: The information contained in this section may have been updated after the patient was seen, as this information can be updated by other users. Medical History BMI greater than 40 Adopted Vitamin D deficiency Depression Anxiety Surgical History No significant past surgical history Family History Other No significant family history Social History Smoking Status: Current every day smoker alcohol intake: never substance use type: denies use current occupational status: employed Travel in the last 8 weeks: None Have you lived/traveled outside [place] in past 30 days?: No Contact w/someone who lives/traveled outside [place] past 30 days?: No Exposure to someone with infectious disease in past 14 days?: No Do you have a fever (greater than 100.4 F or 38 C)?: No Have you tested positive for COVID-19: No Exposed to someone with COVID-19 in past 14 days?: No Do you have a sore throat?: No Do you have a cough?: No Do you have any weakness?: No Do you have any diarrhea?: No Are you experiencing any unusual bleeding?: No Do you have any muscle aches/pain?: No Do you have any abdominal pain?: No Are you experiencing loss of taste or smell?: No Other Medical History Have you received the Flu Vaccine for this season: No Have you received the Pneumonia Vaccine: No <Johan Nolen MD - Last Filed: 12/26/24 23:11> ROS Obtained: Yes other As per HPI Physical Exam <Johan Nolen MD - Last Filed: 12/26/24 23:11> General General appearance: alert and in no apparent distress Head Head exam: atraumatic and normocephalic Eye Eye exam: Present normal appearance Neck Neck exam: Present normal inspection Chest Chest inspection: Present normal inspection and symmetric chest wall rise Respiratory Respiratory exam: Present normal lung sounds bilaterally; Absent respiratory distress Cardiovascular Cardiovascular exam: Present regular rate and normal rhythm Abdominal Exam Abdominal exam: Present soft Neurological Exam Neurological exam: Present alert and oriented X3 Psychiatric Psychiatric exam: Present normal affect and normal mood Skin Skin exam: Present warm and dry Medical Decision Making <Johan Nolen MD - Last Filed: 12/26/24 23:11> Medical Records Medical records reviewed: Yes I reviewed the patient's medical records. Screening: Per USPSTF and CDC recommendations, given the prevalence of disease in our region, it is our hospital?s policy to screen for HIV and viral Hepatitis for all patients aged 18 and over and those with ongoing risk factors. [place] Inquiry Pt receiving controlled substance: No Vital Signs: 12/26/24 21:43 12/26/24 22:00 12/26/24 22:30 Temperature 98.3 F Temperature Source Oral Pulse Rate 85 64 Pulse Rate [Right Brachial] 88 Respiratory Rate 20 18 19 Blood Pressure 137/87 128/84 Blood Pressure [Right Arm] 134/105 H Blood Pressure Mean [Right Arm] 114 Blood Pressure Source [Right Arm] Automatic Cuff Blood Pressure Position [Right Arm] Sitting 02 Sat by Pulse Oximetry 100 100 96 Oxygen Delivery Method Room Air 12/26/24 23:53 Temperature Temperature Source Pulse Rate 67 Pulse Rate [Right Brachial] Respiratory Rate Blood Pressure Blood Pressure [Right Arm] Blood Pressure Mean [Right Arm] Blood Pressure Source [Right Arm] Blood Pressure Position [Right Arm] 02 Sat by Pulse Oximetry Oxygen Delivery Method Lab Data Lab Results 12/26/24 21:43: WBC 13.0 H, RBC 4.84, Hgb 13.8, Hct 41.0, MCV 84.7, MCH 28.5, MCHC 33.7, RDW 13.5, Plt Count 426 H, MPV 9.4, Neut % (Auto) 63.2, Lymph % (Auto) 27.2, [place] % (Auto) 7.2, Eos % (Auto) 1.5, Baso % (Auto) 0.6, Neut # (Auto) 8.2 H, Lymph # (Auto) 3.5, [place] # (Auto) 0.9, Eos # (Auto) 0.2, Baso # (Auto) 0.1, Sodium 138, Potassium 3.6, Chloride 103, Carbon Dioxide 26, Anion Gap 12.6, BUN 16, Creatinine 0.70, Estimated Creat Clear 223, Estimated GFR 102, Est GFR ( Amer) 123, Glucose 101 H, Calcium 9.8, Total Bilirubin 0.5, AST 41 H, ALT 40, Alkaline Phosphatase 114, Troponin I < 0.01, Total Protein 7.9, Albumin 4.7, Globulin 3.2, Albumin/Globulin Ratio 1.5, Lipase 91, TSH 3.54, Free T4 0.94, Serum HCG, Qual Negative, HCV Ab CASSY w/Rflx PCR Qn Negative, HIV Ag/Ab Combo Qual Negative 12/27/24 00:21: Troponin I < 0.01 12/26/24 21:43 12/26/24 21:43 Orders (Tests/Meds): ORDERS Category Date Time Status XR chest portable Stat Exams 12/26/24 22:25 Completed CBC w/Auto Diff [Complete Blood Count Auto Diff] Stat Lab 12/26/24 21:43 Completed CMP [Comprehensive Metabolic Panel] Stat Lab 12/26/24 21:43 Completed Free T4 (Free Thyroxine) Stat Lab 12/26/24 21:43 Completed HCG Qualitative, Serum Stat Lab 12/26/24 21:43 Completed HIV Combo Routine Lab 12/26/24 21:43 Completed Hepatitis C Ab Qual. W/ RFX Routine Lab 12/26/24 21:43 Completed Lipase Stat Lab 12/26/24 21:43 Completed TSH [Thyroid Stimulating Hormone] Stat Lab 12/26/24 21:43 Completed Trop I [Troponin I] Stat Lab 12/26/24 21:43 Completed Troponin I Q3H Lab 12/27/24 00:21 Completed Troponin I Q3H Lab 12/27/24 05:15 Ordered Medical Decision Narrative: Patient with history and exam per above presenting for evaluation of chest pain Diagnoses considered include electrolyte abnormality, , ACS, arrhythmia, among others ED workup and treatment included: ORDERS Category Date Time Status XR chest portable Stat Exams 12/26/24 22:25 Completed CBC w/Auto Diff [Complete Blood Count Auto Diff] Stat Lab 12/26/24 21:43 Completed CMP [Comprehensive Metabolic Panel] Stat Lab 12/26/24 21:43 Results Free T4 (Free Thyroxine) Stat Lab 12/26/24 21:43 Completed HCG Qualitative, Serum Stat Lab 12/26/24 21:43 Completed HIV Combo Routine Lab 12/26/24 21:43 Completed Hepatitis C Ab Qual. W/ RFX Routine Lab 12/26/24 21:43 Completed Lipase Stat Lab 12/26/24 21:43 Results TSH [Thyroid Stimulating Hormone] Stat Lab 12/26/24 21:43 Results Trop I [Troponin I] Stat Lab 12/26/24 21:43 Received Troponin I Q3H Lab 12/27/24 02:15 Ordered Troponin I Q3H Lab 12/27/24 05:15 Ordered Labs were independently interpreted by me, significant for No acute findings, however troponin pending at this time Imaging was independently visualized and interpreted by me, significant for no acute findings Please refer to radiology report for full details. Care at this time transferred to incoming physician. <Hillary Lacey MD - Last Filed: 12/27/24 00:55> Vital Signs: 12/26/24 21:43 12/26/24 22:00 12/26/24 22:30 Temperature 98.3 F Temperature Source Oral Pulse Rate 85 64 Pulse Rate [Right Brachial] 88 Respiratory Rate 20 18 19 Blood Pressure 137/87 128/84 Blood Pressure [Right Arm] 134/105 H Blood Pressure Mean [Right Arm] 114 Blood Pressure Source [Right Arm] Automatic Cuff Blood Pressure Position [Right Arm] Sitting 02 Sat by Pulse Oximetry 100 100 96 Oxygen Delivery Method Room Air 12/26/24 23:53 Temperature Temperature Source Pulse Rate 67 Pulse Rate [Right Brachial] Respiratory Rate Blood Pressure Blood Pressure [Right Arm] Blood Pressure Mean [Right Arm] Blood Pressure Source [Right Arm] Blood Pressure Position [Right Arm] 02 Sat by Pulse Oximetry Oxygen Delivery Method Lab Data Lab Results 12/26/24 21:43: WBC 13.0 H, RBC 4.84, Hgb 13.8, Hct 41.0, MCV 84.7, MCH 28.5, MCHC 33.7, RDW 13.5, Plt Count 426 H, MPV 9.4, Neut % (Auto) 63.2, Lymph % (Auto) 27.2, [place] % (Auto) 7.2, Eos % (Auto) 1.5, Baso % (Auto) 0.6, Neut # (Auto) 8.2 H, Lymph # (Auto) 3.5, [place] # (Auto) 0.9, Eos # (Auto) 0.2, Baso # (Auto) 0.1, Sodium 138, Potassium 3.6, Chloride 103, Carbon Dioxide 26, Anion Gap 12.6, BUN 16, Creatinine 0.70, Estimated Creat Clear 223, Estimated GFR 102, Est GFR ( Amer) 123, Glucose 101 H, Calcium 9.8, Total Bilirubin 0.5, AST 41 H, ALT 40, Alkaline Phosphatase 114, Troponin I < 0.01, Total Protein 7.9, Albumin 4.7, Globulin 3.2, Albumin/Globulin Ratio 1.5, Lipase 91, TSH 3.54, Free T4 0.94, Serum HCG, Qual Negative, HCV Ab CASSY w/Rflx PCR Qn Negative, HIV Ag/Ab Combo Qual Negative 12/27/24 00:21: Troponin I < 0.01 Orders (Tests/Meds): ORDERS Category Date Time Status XR chest portable Stat Exams 12/26/24 22:25 Completed CBC w/Auto Diff [Complete Blood Count Auto Diff] Stat Lab 12/26/24 21:43 Completed CMP [Comprehensive Metabolic Panel] Stat Lab 12/26/24 21:43 Completed Free T4 (Free Thyroxine) Stat Lab 12/26/24 21:43 Completed HCG Qualitative, Serum Stat Lab 12/26/24 21:43 Completed HIV Combo Routine Lab 12/26/24 21:43 Completed Hepatitis C Ab Qual. W/ RFX Routine Lab 12/26/24 21:43 Completed Lipase Stat Lab 12/26/24 21:43 Completed TSH [Thyroid Stimulating Hormone] Stat Lab 12/26/24 21:43 Completed Trop I [Troponin I] Stat Lab 12/26/24 21:43 Completed Troponin I Q3H Lab 12/27/24 00:21 Completed Troponin I Q3H Lab 12/27/24 05:15 Ordered Medical Decision Narrative: Patient with history and exam per above presenting for evaluation of chest pain Diagnoses considered include electrolyte abnormality, , ACS, arrhythmia, among others ED workup and treatment included: ORDERS Category Date Time Status XR chest portable Stat Exams 12/26/24 22:25 Completed CBC w/Auto Diff [Complete Blood Count Auto Diff] Stat Lab 12/26/24 21:43 Completed CMP [Comprehensive Metabolic Panel] Stat Lab 12/26/24 21:43 Results Free T4 (Free Thyroxine) Stat Lab 12/26/24 21:43 Completed HCG Qualitative, Serum Stat Lab 12/26/24 21:43 Completed HIV Combo Routine Lab 12/26/24 21:43 Completed Hepatitis C Ab Qual. W/ RFX Routine Lab 12/26/24 21:43 Completed Lipase Stat Lab 12/26/24 21:43 Results TSH [Thyroid Stimulating Hormone] Stat Lab 12/26/24 21:43 Results Trop I [Troponin I] Stat Lab 12/26/24 21:43 Received Troponin I Q3H Lab 12/27/24 02:15 Ordered Troponin I Q3H Lab 12/27/24 05:15 Ordered Labs were independently interpreted by me, significant for No acute findings, however troponin pending at this time Imaging was independently visualized and interpreted by me, significant for no acute findings Please refer to radiology report for full details. Care at this time transferred to incoming physician. Lacey: Upon my assumption of care patient is stable and resting comfortably. I agree with the assessment and plan from Dr. Nolen. I agree with his interpretation of labs. Thyroid and troponin pending at the time of my assumption of care. Free T4 within normal limits, TSH normal. Initial troponin undetectably low. Repeat troponin also undetectably low. Given patient has had symptoms for multiple days and this episode has been going on for many hours, I am reassured by her undetectable troponin that her symptoms are not cardiac in etiology. I discussed this with the patient and she agrees. I believe she is appropriate for discharge at this time. I discussed administration of hydroxyzine in the ER, she has to drive herself home and this medication can be sedating so I am not going to web administrator it at this time but I did prescribe it for as needed use and described how it should be used to the patient. I gave her referral to cardiology for outpatient follow-up and instructed her to follow-up with her primary care doctor as well. She also received strict return precautions for the ER. She indicated understanding and the patient was discharged in stable condition. Critical Care <Johan Nolen MD - Last Filed: 12/26/24 23:11> Critical Care Time Critical Care Time: No
--- NOTE | 2024-12-26 21:47 | PC.NURSE ---
Pt awake alert and oriented Pt states she has midsternal chest pain for past 4 hours. Skin pink warm and dry REsp full and easy PT in sinus rythm per continuos heart monitor. Speech clear and appropriate. Lungs clear to posterior auscultation S1 and S2 clearly auscultated.
[2024-12-26 22:00] VITALS: BP 137/87; PULSE 85; RESP 18; O2SAT 100
--- NOTE | 2024-12-26 22:25 | XR_ITS ---
PROCEDURE INFORMATION: Exam: XR Chest Exam date and time: 12/26/2024 10:33 PM Age: 24 years old Clinical indication: Pain; Other: Tachycardia; Left-sided; Additional info: Chest pain, episodes of tachycardia TECHNIQUE: Imaging protocol: Radiologic exam of the chest. Views: 1 view. COMPARISON: CR XR CHEST 2V 04/27/2024 3:11 PM FINDINGS: Lungs: Unremarkable. No consolidation. Pleural spaces: Unremarkable. No pleural effusion. No pneumothorax. Heart/Mediastinum: Unremarkable. No cardiomegaly. Bones/joints: Unremarkable. IMPRESSION: No acute findings.
[2024-12-26 22:30] VITALS: BP 128/84; PULSE 64; RESP 19; O2SAT 96
[2024-12-26 22:45] LABS: Basophils # 0.1 K/mm3 (0-0.2); Basophils % 0.6 % (0.1-2.0); Eosinophils # 0.2 K/mm3 (0.0-0.4); Eosinophils % 1.5 % (0.1-12.0); Hemoglobin 13.8 g/dL (12.2-16.2); Lymphocytes # 3.5 K/mm3 (0.7-4.5); Lymphocytes % 27.2 % (10-50); Mean Corpuscular HGB Conc 33.7 g/dL (31.8-35.4); Mean Corpuscular Hemoglobin 28.5 pg (27.0-31.2); Mean Corpuscular Volume 84.7 fl (81-99); Mean Platelet Volume 9.4 fl (7.4-10.4); Monocytes # 0.9 K/mm3 (0.1-1.0); Monocytes % 7.2 % (1.7-9.3); Neutrophils # 8.2 K/mm3 (1.8-7.8); Neutrophils % 63.2 % (37.0-80.0); Platelet Count 426 K/mm3 (142-424); Red Blood Count 4.84 M/mm3 (4.20-5.40); Red Cell Distribution Width 13.5 % (11.5-17.5)
[2024-12-26 22:46] LABS: HCG Qualitative, Serum Negative (Negative)
[2024-12-26 22:48] LABS: Albumin Level 4.7 g/dl (3.5-5.0); Chloride 103 mmol/L (98-107)
[2024-12-26 22:49] LABS: Potassium 3.6 mmoL/L (3.5-5.1); Sodium 138 mmol/L (136-145)
[2024-12-26 22:50] LABS: HIV Combo NEGATIVE (Negative)
[2024-12-26 22:51] LABS: Alanine Aminotransferase 40 U/L (12-78); Alkaline Phosphatase 114 U/L (38-126); Anion Gap 12.6 mEq/L (5-15); Aspartate Amino Transferase 41 U/L (14-36); Bilirubin,Total 0.5 mg/dl (0.2-1.3); Blood Urea Nitrogen 16 mg/dl (7-17); Carbon Dioxide 26 mmol/L (22.0-30.0); Creatinine Clearance Estimated 223 mL/min (50-200); Estimated Glomerular Filt Rate 102 ml/min (>60); GFR (African American) 123 ML/MIN (>60)
[2024-12-26 22:52] LABS: Albumin/Globulin Ratio 1.5 (1.1-1.8); Calcium 9.8 mg/dl (8.4-10.2); Globulin 3.2 g/dL (1.3-3.2); Glucose 101 mg/dl (74-100); Lipase 91 U/L (23-300); Total Protein,Serum 7.9 g/dl (6.3-8.2)
[2024-12-26 22:57] LABS: Hepatitis C Ab Qual. W/ RFX NEGATIVE (Negative)
[2024-12-26 23:05] LABS: Free T4 (Free Thyroxine) 0.94 ng/dl (0.78-2.19)
[2024-12-26 23:22] LABS: Thyroid Stimulating Hormone 3.54 uIU/mL (0.465-4.68)
[2024-12-26 23:36] LABS: Troponin I < 0.01 ng/ml (0.00-0.034)
[2024-12-26 23:53] VITALS: PULSE 67
[2024-12-27 00:48] LABS: Troponin I < 0.01 ng/ml (0.00-0.034)
[2024-12-27 01:02] VITALS: BP 133/89; PULSE 73; RESP 20; TEMP 36.6; O2SAT 100
== END 2024-12-27 01:04 | disposition home or self-care (01) ==
PROVIDERS: Emergency Medicine; Emergency Provider Emergency Medicine; PCP Nurse Practitioner Family
DX: R07.9 Chest pain, unspecified (principal); F41.9 Anxiety disorder, unspecified; R00.0 Tachycardia, unspecified; Z72.0 Tobacco use
CPT/HCPCS: 71045; 80053; 83690; 84439; 84443; 84484; 84703; 85025; 86803; 87389; 93005; 99284